=== PATIENT | female | born 1960 ===

== ENCOUNTER 2017-09-01 06:04 | Inpatient (IN) | payer MEDICARE ==
[2017-08-27 18:22] VITALS: BMI 29.2
--- NOTE | 2017-09-01 07:14 | CP.PCM.HP ---
History of Present Illness - History of Present Illness History of Present Illness: PCP: Dr Garcia Orthopedic: Dr Goodson Chief Complaint: Pain to the left Hip HPI: 57 years old female with hx of Rheumatoid Arthritis and both left and right knee replacement, Comes with three months of worsening pain to the left hip after a mechanical fall. She was diagnosed with left hip fracture a month later and ambulates with a cane and walker. She is here for an elective left total hip replacement. PMH: Rheumatoid Arthritis PSH: Bilateral TKR SH: Light smoker; No alcohol nor illegal drug use. FH: States, No known family hx Allergies: NKDA Present on Admission - Present on Admission Any Indicators Present on Admission: No History of DVT/PE: No History of Uncontrolled Diabetes: No Urinary Catheter: No Decubitus Ulcer Present: No Review of Systems - Constitutional Constitutional: absent: Anorexia, Chills, Fatigue, Fever, Weight Gain - EENT Eyes: Requires Corrective Lenses. absent: Diplopia, Floaters, Pain Ears: absent: Decreased Hearing, Ear Discharge, Tinnitus Nose/Mouth/Throat: absent: Epistaxis, Nasal Congestion, Nasal Discharge, Sinus Pain, Sinus Pressure - Cardiovascular Cardiovascular: absent: Chest Pain, Dyspnea, Edema - Respiratory Respiratory: absent: Cough, Dyspnea, Wheezing, Stridor - Gastrointestinal Gastrointestinal: absent: Abdominal Pain, Constipation, Diarrhea, Nausea, Vomiting - Genitourinary Genitourinary: absent: Dysuria, Flank Pain, Hematuria, Urinary Frequency - Musculoskeletal Musculoskeletal: Arthralgias Additional comments: Left hip pain and stiff - Integumentary Integumentary: absent: Pruritus, Rash, Skin Ulcer, Sores, Striae, Swelling - Neurological Neurological: absent: Confusion, Focal Weakness, Headaches, Weakness - Psychiatric Psychiatric: absent: Anxiety, Depression, Panic Attacks - Endocrine Endocrine: absent: Palpitations, Polydipsia, Polyphagia, Polyuria - Hematologic/Lymphatic Hematologic: absent: Easy Bleeding, Easy Bruising Past Patient History - Past Medical History & Family History Past Medical History?: Yes - Past Social History Smoking Status: Current Some Days Smoker Chewing Tobacco Use: No Cigar Use: No Alcohol: None Drugs: Denies Home Situation {Lives}: With Family - CARDIAC Hx Cardiac Disorders: No - PULMONARY Hx Respiratory Disorders: No - NEUROLOGICAL Hx Neurological Disorder: No - HEENT Hx HEENT Problems: No - RENAL Hx Chronic Kidney Disease: No - ENDOCRINE/METABOLIC Hx Endocrine Disorders: No - HEMATOLOGICAL/ONCOLOGICAL Hx Blood Disorders: Yes Hx Anemia: Yes - INTEGUMENTARY Hx Dermatological Problems: No - MUSCULOSKELETAL/RHEUMATOLOGICAL Hx Musculoskeletal Disorders: Yes Hx Rheumatoid Arthritis: Yes - GASTROINTESTINAL Hx Gastrointestinal Disorders: No - GENITOURINARY/GYNECOLOGICAL Hx Genitourinary Disorders: No - PSYCHIATRIC Hx Psychophysiologic Disorder: No - SURGICAL HISTORY Hx Surgeries: Yes Hx Joint Replacement: Yes (right and left knee) - ANESTHESIA Hx Anesthesia: Yes Hx Anesthesia Reactions: No Meds Allergies/Adverse Reactions: Allergies Allergy/AdvReac Type Severity Reaction Status Date / Time No Known Allergies Allergy Verified 09/01/17 07:02 Physical Exam - Constitutional Appears: No Acute Distress - Head Exam Head Exam: ATRAUMATIC, NORMAL INSPECTION, NORMOCEPHALIC - Eye Exam Eye Exam: EOMI, Normal appearance - ENT Exam ENT Exam: Mucous Membranes Moist, Normal Exam, Normal External Ear Exam, Normal Oropharynx - Neck Exam Neck exam: Positive for: Full Rom, Normal Inspection. Negative for: Lymphadenopathy, Tenderness - Respiratory Exam Respiratory Exam: Clear to Auscultation Bilateral. absent: Rales, Rhonchi, Wheezes - Cardiovascular Exam Cardiovascular Exam: REGULAR RHYTHM, RRR, +S1, +S2 - GI/Abdominal Exam GI & Abdominal Exam: Normal Bowel Sounds, Soft. absent: Mass, Organomegaly - Rectal Exam Rectal Exam: Deferred - Extremities Exam Additional comments: Pain to the left hip and left lower extremity on sitting up from a lying position and on palpation of the hip. - Back Exam Back exam: NORMAL INSPECTION. absent: CVA tenderness (L), CVA tenderness (R) - Neurological Exam Neurological exam: Alert, CN II-XII Intact, Oriented x3, Reflexes Normal - Psychiatric Exam Psychiatric exam: Normal Affect, Normal Mood - Skin Skin Exam: Intact, Normal Color, Warm Results - Labs Labs: Laboratory Results - last 24 hr 09/01/17 06:30 Crossmatch See Detail BBK History Checked No verified bt 08/17 Hb ii.3 Ht 33 WBC 8.0 BUN 21 Creatinine 0.7 UA -ve nitrites and -ve leukocyte esterase - EKG Data EKG comments: NSR 68/min - Imaging and Cardiology Chest x-ray Status: Report reviewed by me Additional comment: Subcentimeter densities over mid aspect of the right lung Assessment & Plan - Assessment and Plan (Free Text) Assessment: #. Rheumatoid Arthritis #. Fracture Left Femur head Plan: 57 years old female with hx of Rheumatoid Arthritis and both left and right knee replacement, Comes with three months of worsening pain to the left hip after a mechanical fall. She was diagnosed with left hip fracture a month later and ambulates with a cane and walker. She is here for an elective left total hip replacement. #. Rheumatoid Arthritis - Pain management - restart Home medication post surgery - Embrel/Methotrexate/Sulfasalazine/leflunomide #. Fracture Left Femur head - For left THR - Consult Dr Goodson orthopedic - Pain management post surgery - PT/OT post surgery #. DVT Prophylaxis post surgery #. Code Status: Full The patient was cleared for Surgery by her PCP Dr Garcia. Documented in the records. After review of the medical records, laboratory records and the hydrodynamic records in this patient with no cardiac nor Pulmonary hx, I agree to Clear this patient with mild cardiac risk for surgery Yousuf Sal MD - Date & Time Date: 09/01/17 Time: 07:14
[2017-09-01] MEDS ORDERED: Propofol 10 mg/ml Inj (20 ML) ONE (07:18)
[2017-09-01] MEDS ORDERED: Midazolam 2 MG/2 ML VIAL ONE (07:19)
[2017-09-01] MEDS ORDERED: ePHEDrine 50 mg/ml Inj ONE ×2 (07:19→13:29)
[2017-09-01] MEDS ORDERED: Rocuronium 10 mg/ml (5 ml) ONE ×3 (07:20→12:25)
[2017-09-01] MEDS ORDERED: Succinylcholine 200 mg/10 ml Inj IV ONE (07:20)
[2017-09-01] MEDS ORDERED: Bupivacaine 0.25%-Epinephrine 1:200,000 (30 ml) Inj ONE (07:21)
[2017-09-01] MEDS ORDERED: Morphine 1 mg/ml preservative-free Inj(Duramorph) ONE (07:23)
[2017-09-01] MEDS ORDERED: Etomidate 20 mg/10ml Inj IV ONE (07:31)
[2017-09-01] MEDS ORDERED: Lidocaine 4% (Laryng-O-Jet) Kit MM ONE (07:32)
[2017-09-01] MEDS ORDERED: Absorbable Gelatin Sponge Size 100 ONE (07:42)
[2017-09-01] MEDS ORDERED: Thrombin Topical 5,000 IU Spray Kit ONE (07:42)
[2017-09-01] MEDS ORDERED: Lactated Ringer's 1,000 ML IV ONE ×2 (08:00→13:15)
[2017-09-01] MEDS ORDERED: Sodium Chloride 0.9% 1,000 ML IV ONE ×2 (08:15→11:00)
[2017-09-01] MEDS ORDERED: Calcium Chloride 1000 mg/10 ml Syringe IV ONE (08:26)
[2017-09-01] MEDS ORDERED: HEMOSTATIC MATRIX 10 ML DIS.NEEDLE TOP ONE (13:00)
[2017-09-01] MEDS ORDERED: Propofol 10 mg/ml 1,000 MG/100 ML VIAL ONE (13:10)
[2017-09-01] MEDS ORDERED: Neostigmine Methylsulfate 2 MG/2 ML ML IV ONE (13:26)
[2017-09-01] MEDS ORDERED: Lactated Ringer's 500 ML IV ONE (13:30)
[2017-09-01] MEDS ORDERED: Lactated Ringer's 1,000 ML IV SCH ×2 (14:30→17:15)
--- NOTE | 2017-09-01 14:37 | RAD ---
PROCEDURE: Fluoroscopy greater than 1 hour HISTORY: LEFT HIP COMPARISON: None TECHNIQUE: Standard protocol for this study/examination. FINDINGS: Submitted images from the current procedure: 13.0 IMPRESSION: Fluoroscopy assistance provided as described.
[2017-09-01] MEDS ORDERED: Propofol 10 mg/ml Inj (100 ml) IV SCH ×2 (14:45→20:45)
--- NOTE | 2017-09-01 16:17 | PCM.SURG1 ---
Surgeon's Initial Post Op Note - Surgeon's Notes Surgeon: Hamzah Parcel Wrapper: SANTOS Falk Type of Anesthesia: General Endo, Spinal Anesthesia Administered By: DR Kj Perea Pre-Operative Diagnosis: Primary O/A L HIp Operative Findings: as above. synovitis L hip Post-Operative Diagnosis: same Operation Performed: L THR. Femoral neck osteotomy. arthrotomy synovectomy. release iliopsoas tendon. computer navigation ([employer]) Specimen/Specimens Removed: bone/synovium/cartilage Estimated Blood Loss: EBL {In ML}: 225 Blood Products Given: PRBC Drains Used: No Drains Post-Op Condition: Good Date of Surgery/Procedure: 09/01/17 Time of Surgery/Procedure: 09:40 ([facility] room8:05)
--- NOTE | 2017-09-01 16:23 | PCM.ANESB3 ---
Femoral Nerve Block - Femoral Nerve Block Date of Procedure: 09/01/17 Anesthesiologist: Brit Pre-Procedure Diagnosis: Left Hip Rheumatoid Arthritis Post-Procedure Diagnosis: Same Procedure Performed: Femoral Nerve Block Left - Procedure Femoral Nerve Block: The procedure was explained to the patient that it is for the post-operative pain management. Consent was obtained after a thorough discussion with the patient regarding the benefits and possible complications of local anesthetic block of the femoral nerve at the inguinal crease area. The patient was brought to the operating room and standard monitors were applied. Time-out was held with the circulating nurse to confirm the correct surgery and the appropriate block. Post procedure while intubated and under IV Sedation, patient was placed in supine position with fully extended lower extremities and the __left groin exposed. The femoral artery was then carefully palpated. The ultrasound transducer was then applied to this area in the transverse plane and the femoral nerve was visualized lateral to the femoral artery and underneath the fascia iliaca. After thorough identification, the inguinal crease area was prepped with Chloraprep. At this point, a #22 gauge Stimuplex 4-inch needle was inserted immediately lateral to the femoral artery pulse at the inguinal crease and advanced perpendicularly. The needle was inserted to the ultrasound transducer in-plane towards the femoral nerve in a [id number] direction. Needle advancement was performed carefully under direct ultrasound visualization. Nerve stimulator was used and twitch of the quadriceps muscle was obtained at current of ___0.4__ MA. After negative aspiration, __2___cc of __0.25___% __bupivicaine with 1:200, 000 epinephrine was injected and this was followed with ___28_ __ cc of ___0.25____ % ___bupivicaine with 1:200,000 epinephrine . Under ultrasound guidance the local anesthetics were observed spreading below fascia iliaca and around the femoral nerve. The needle was then directed laterally below the fascia iliaca and after negative aspiration 20 cc of 0.25% bupivicaine with 1:200,000 epinephrine was injected between the fascia iliaca and the iliacus muscle. Local anesthetic was seen spreading below the fascia iliaca in the direction of the lateral femoral cutaneous nerve. The needle was removed intact . The patient had stable vital signs, was responsive and in no apparent distress. The patient tolerated the femoral nerve block well.
--- NOTE | 2017-09-01 16:25 | RAD ---
PROCEDURE: Left Hip X-ray Radiographs. HISTORY: postop COMPARISON: None. FINDINGS: BONES: Satisfactory postoperative status following left ESME. JOINTS: Normal. SOFT TISSUES: Expected findings within the soft tissues lateral to the left hip/ESME identified OTHER FINDINGS: None. IMPRESSION: Satisfactory postoperative status.
[2017-09-01] MEDS: ceFAZolin 1 GM in Sodium Chloride 0.9% 100 ML IVPB SCH (17:56)
[2017-09-01 17:57] LABS: BASO % 0.3 % (0.0-2.0); HEMATOCRIT 42.8 % (34.0-47.0); LYMPH # 0.4 K/uL (1.0-4.3); LYMPH % 2.7 % (20.0-40.0); MEAN CELL VOLUME 86.6 fl (81.0-99.0); MEAN CORPUSCULAR HGB CONC 32.3 g/dL (33.0-37.0); MEAN PLATELET VOLUME 7.5 fl (7.2-11.7); MONO # 0.9 K/uL (0.0-0.8); MONO % 6.6 % (0.0-10.0); NEUT % 90.4 % (50.0-75.0); NRBC % 0.1 % (0.0-0.0); PLATELET COUNT 213 K/uL (130-400); RED CELL DISTRIBUTION WIDTH 17.3 % (11.5-14.5); WHITE BLOOD COUNT 14.4 K/uL (4.8-10.8)
[2017-09-01 18:19] LABS: ALKALINE PHOSPHATASE 112 U/L (38-126); ALT/SGPT 46 U/L (9-52); AST/SGOT 66 U/L (14-36); BILIRUBIN,TOTAL 3.4 mg/dl (0.2-1.3); BLOOD UREA NITROGEN 15 mg/dl (7-17); CALCIUM 9.1 mg/dL (8.4-10.2); CARBON DIOXIDE 17 mmol/L (22-30); CHLORIDE 108 mmol/L (98-107); GFR AFRICAN-AMERICAN > 60; GLUCOSE,RANDOM 211 mg/dL (65-105); POTASSIUM 3.9 MMOL/L (3.6-5.0); SODIUM 143 mmol/l (132-148); TOTAL PROTEIN 6.8 G/DL (6.3-8.2)
--- NOTE | 2017-09-01 18:23 | CP.CCUPN ---
CCU Subjective - Physician Review Events Since Last Encounter (Free Text): 09/01/17 18:23 The patient was Seen and examined by me at the bedside, Medical records reviewed and Management issues were discussed and formulated with the house staff. Events reviewed 57 Y/O active smoker Female with PMHx of severe Rheumatoid Arthritis (on steroids and Embrel/Methotrexate/Sulfasalazine/leflunomide), S/p Bilateral knee replacement Who presented to the ER with complains of three months of worsening pain to the left hip after a mechanical fall. Patient admitted to ICU following L THR, Femoral neck osteotomy. Procedure done under General Anesthesia and was uneventful Estimated Blood Loss: EBL {In ML}: 225 Patient remains sedated, orally intubated and Admitted to ICU hemodynamically stable. Patient on home steroids for RA, received 2 doses of stress steroids and will receive the third dose tonight Patient was difficult intubation and suspected to have airway edema, so she was started on decadrone and decision was made to keep intubated overnight CCU Objective - Vital Signs / Intake & Output Vital Signs (Last 4 hours): Vital Signs Temp Pulse Resp BP Pulse Ox 09/01/17 18:00 105 H 10 L 95/72 L 100 09/01/17 17:07 93 H 11 L 91/64 L 100 09/01/17 16:00 97.7 F 100 H 11 L 101/71 100 09/01/17 15:45 88 10 L 100/68 100 09/01/17 15:30 97.1 F L 87 10 L 113/83 100 09/01/17 15:15 97.0 F L 93 H 10 L 103/57 L 100 09/01/17 15:00 96.9 F L 86 10 L 99/65 L 100 09/01/17 14:45 96.7 F L 88 10 L 105/68 100 09/01/17 14:30 94.3 F L 78 9 L 101/64 100 09/01/17 14:15 94.1 F L 76 9 L 99/66 L 100 Intake and Output (Last 8hrs): Intake & Output 09/01/17 09/01/17 09/01/17 06:59 14:59 22:59 Intake Total 3125 343 Output Total 130 Balance 3125 213 Intake: IV 2150 243 Intake, Piggyback 100 Blood Product 975 Output: Urine 130 Urethral (Rodriguez) 130 Other: Voiding Method Bedpan - Physical Exam Physical Exam Limitations: Positive for: Clinical Condition Head: Positive for: Atraumatic, Normocephalic. Negative for: Tenderness, Contusion, Swelling, Ecchymosis Pupils: Positive for: PERRL. Negative for: Sluggish, Non-Reactive Extroacular Muscles: Positive for: EOMI. Negative for: Gaze Palsy, Entrapment Conjunctiva: Positive for: Normal. Negative for: Injected, Icteric Ears: Positive for: Normal Mouth: Positive for: Moist Mucous Membranes. Negative for: Dry, Drooling Pharnyx: Positive for: Normal Nose (Internal): Positive for: Normal Inspection Neck: Positive for: Normal Range of Motion, Trachea Midline. Negative for: Meningeal Signs, MIDLINE TENDERNESS, Paraspinal Tenderness, JVD, Lymphadenopathy , Bruit, Other Respiratory/Chest: Positive for: Clear to Auscultation, Good Air Exchange. Negative for: Respiratory Distress, Accessory Muscle Use, Wheezes, Decreased Breath Sounds, Rales, Retracting, Rhonchi Cardiovascular: Positive for: Regular Rate and Rhythm, Normal S1, S2, Peripheal Pulses Present. Negative for: Murmurs, Irregular Rhythm, Tachycardic, Bradycardic Abdomen: Positive for: Normal Bowel Sounds. Negative for: Tenderness, Distention, Peritoneal Signs Upper Extremity: Positive for: Normal Inspection, Normal ROM, NORMAL PULSES, Capillary Refill < 2s. Negative for: Cyanosis, Edema Lower Extremity: Positive for: Normal Inspection, NORMAL PULSES, Capillary Refill < 2 s. Negative for: Edema, CALF TENDERNESS - Medications Active Medications: Active Medications Generic Name Dose Route Start Last Admin Trade Name Freq PRN Reason Stop Dose Admin Acetaminophen 650 mg 09/01/17 15:16 Tylenol 650 Mg Supp VT Q6H PRN Fever >100.4 F Lactated Ringer's 1,000 mls @ 75 mls/hr 09/01/17 14:30 Lactated Ringer's IV .[id number] TONJA Cefazolin Sodium 1 gm/ Sodium 100 mls @ 100 mls/hr 09/01/17 17:00 09/01/17 17 :56 Chloride IVPB 09/02/17 09:59 100 mls/hr Q8 TONJA Administration Lactated Ringer's 1,000 mls @ 75 mls/hr 09/01/17 17:15 09/01/17 17:49 Lactated Ringer's IV 75 mls/hr .[id number] TONJA Administration Ondansetron HCl 4 mg 09/01/17 15:16 Zofran Inj IVP Q6H PRN Nausea/Vomiting Pantoprazole Sodium 40 mg 09/02/17 09:00 Protonix Inj IVP DAILY TONJA Pantoprazole Sodium 40 mg 09/02/17 09:00 Protonix Inj IVP DAILY TONJA Prednisone 10 mg 09/02/17 09:00 Prednisone Tab PO DAILY TONJA Propofol 1,000 mg 09/01/17 14:45 09/01/17 13:15 Diprivan IV 1,000 mg .TITRATE TONJA Administration - Patient Studies Lab Studies: Lab Studies 09/01/17 09/01/17 09/01/17 Range/Units 17:28 17:20 07:10 WBC 14.4 H (4.8-10.8) K/uL RBC 4.94 (3.80-5.20) Mil/uL Hgb 13.8 (12.0-16.0) g/dL Hct 42.8 (34.0-47.0) % MCV 86.6 (81.0-99.0) fl MCH 28.0 (27.0-31.0) pg MCHC 32.3 L (33.0-37.0) g/dL RDW 17.3 H (11.5-14.5) % Plt Count 213 (130-400) K/uL MPV 7.5 (7.2-11.7) fl Neut % (Auto) 90.4 H (50.0-75.0) % Lymph % (Auto) 2.7 L (20.0-40.0) % [place] % (Auto) 6.6 (0.0-10.0) % Eos % (Auto) 0.0 (0.0-4.0) % Baso % (Auto) 0.3 (0.0-2.0) % Neut # 13.0 H (1.8-7.0) K/uL Lymph # 0.4 L (1.0-4.3) K/uL [place] # 0.9 H (0.0-0.8) K/uL Eos # 0.0 (0.0-0.7) K/uL Baso # 0.0 (0.0-0.2) K/uL POC Glucose (mg/dL) 227 H (65-110) mg/dL Blood Type Blood Type Confirm O POSITIVE Antibody Screen Crossmatch BBK History Checked 09/01/17 Range/Units 06:30 WBC (4.8-10.8) K/uL RBC (3.80-5.20) Mil/uL Hgb (12.0-16.0) g/dL Hct (34.0-47.0) % MCV (81.0-99.0) fl MCH (27.0-31.0) pg MCHC (33.0-37.0) g/dL RDW (11.5-14.5) % Plt Count (130-400) K/uL MPV (7.2-11.7) fl Neut % (Auto) (50.0-75.0) % Lymph % (Auto) (20.0-40.0) % [place] % (Auto) (0.0-10.0) % Eos % (Auto) (0.0-4.0) % Baso % (Auto) (0.0-2.0) % Neut # (1.8-7.0) K/uL Lymph # (1.0-4.3) K/uL [place] # (0.0-0.8) K/uL Eos # (0.0-0.7) K/uL Baso # (0.0-0.2) K/uL POC Glucose (mg/dL) (65-110) mg/dL Blood Type O POSITIVE Blood Type Confirm Antibody Screen Negative Crossmatch See Detail BBK History Checked No verified bt Laboratory Results - last 24 hr 09/01/17 09/01/17 09/01/17 06:30 07:10 17:20 WBC 14.4 H RBC 4.94 Hgb 13.8 Hct 42.8 MCV 86.6 MCH 28.0 MCHC 32.3 L RDW 17.3 H Plt Count 213 MPV 7.5 Neut % (Auto) 90.4 H Lymph % (Auto) 2.7 L [place] % (Auto) 6.6 Eos % (Auto) 0.0 Baso % (Auto) 0.3 Neut # 13.0 H Lymph # 0.4 L [place] # 0.9 H Eos # 0.0 Baso # 0.0 POC Glucose (mg/dL) Blood Type O POSITIVE Blood Type Confirm O POSITIVE Antibody Screen Negative Crossmatch See Detail BBK History Checked No verified bt 09/01/17 17:28 WBC RBC Hgb Hct MCV MCH MCHC RDW Plt Count MPV Neut % (Auto) Lymph % (Auto) [place] % (Auto) Eos % (Auto) Baso % (Auto) Neut # Lymph # [place] # Eos # Baso # POC Glucose (mg/dL) 227 H Blood Type Blood Type Confirm Antibody Screen Crossmatch BBK History Checked Fingerstick Blood Sugar Results: 227 Review of Systems - Review of Systems Systems not reviewed;Unavailable: Intubated Critical Care Progress Note - Ventilator Checklist Head of Bed 30 Degrees: Yes Daily Sedation Vacation: Yes Daily Assessment of Readiness to Wean: Yes Daily Spontaneous Breathing Trial: Yes PUD Prophalyxis: Yes DVT Prophylaxis: Yes Oral Care with Chlorhexidine Gluconate {CHG}: Yes - Extremities/Vascular Does the Patient have a Central Venous Catheter?: No Does the Patient need a Central Venous Catheter?: No Does the Patient have a Rodriguez Catheter?: Yes Does the Patient need a Rodriguez Catheter?: Yes - Nutrition Nutrition: Nutrition Category Date Time Status NPO Diet [DIET] Diets 09/01/17 Breakfast Active Assessment/Plan (1) Rheumatoid arthritis Current Visit: Yes Status: Acute (2) Acute respiratory failure Current Visit: Yes Status: Acute (3) Aftercare following joint replacement surgery Current Visit: Yes Status: Acute - Assessment and Plan (Free Text) Assessment: Admit to SICU for hemodynamic monitoring, STAT LABS/LYTES/CBC, XR, EKG Full vent support tonight, Wean to extubate in AM Monitor Respiratory status PRN Naloxone for RR<8 IV Hydration with LR @ 100 ml/hr STRESS DOSE IV STEROIDS X 3 Perioperative Antibiotics Pain control with MORPHIN IV IV Q4H PRN NPO Bowel regimen Monitor urine output Rodriguez to be removed tomorrow Restart outpatient meds BD nebs q 6h prn PRN Ondansetron Wound care Tight glycemic control, RISS with Coverage Aggressive pulmonary toilet, chest PT, suctioning GI/DVT PPX with SCDs, START LMWH IN AM IF NO BLEED GI PPX Code status: Full code Total critical care time 45 minutes
[2017-09-01 18:30] LABS: NEUTROPHIL 86 % (42-75); TOTAL CELLS COUNTED 100
[2017-09-01] MEDS ORDERED: Lactated Ringer's 500 ML IV SCH (20:45)
[2017-09-01] MEDS: Dexamethasone 10 MG in Sodium Chloride 0.9% 50 ML IVPB SCH (22:00)
[2017-09-01] MEDS ORDERED: Hydrocortisone- 100 MG in Sodium Chloride 0.9% 100 ML IV ONE (23:00)
[2017-09-02] MEDS: ceFAZolin 1 GM in Sodium Chloride 0.9% 100 ML IVPB SCH ×2 (01:00→08:57)
[2017-09-02 05:19] LABS: HEMATOCRIT 33.4 % (34.0-47.0); MEAN CORPUSCULAR HEMOGLOBIN 28.2 pg (27.0-31.0); MEAN CORPUSCULAR HGB CONC 33.2 g/dL (33.0-37.0); RED CELL DISTRIBUTION WIDTH 17.6 % (11.5-14.5); WHITE BLOOD COUNT 13.3 K/uL (4.8-10.8)
[2017-09-02 05:24] LABS: ABG ALLEN TEST YES; ABG MECHANICAL RATE 12; ARTERIAL BLOOD GAS HCO3 23.3 mmol/L (21-28); ARTERIAL BLOOD GAS MODE A/C; ARTERIAL BLOOD GAS O2 CONTENT 15.8 ML/dL (15-23); ARTERIAL BLOOD GAS PH 7.37 (7.35-7.45); ARTERIAL BLOOD GAS PO2 186 mm/Hg (80-100); ARTERIAL BLOOD HGB O2 SAT 95.3 % (95.0-98.0); ATERIAL BLOOD GAS PEEP 5; CARBOXYHEMOGLOBIN 1.3 % (0.5-1.5); HHB 1.3 % (0.0-5.0); METHEMOGLOBIN 2.1 % (0.0-3.0)
[2017-09-02 05:32] LABS: BLOOD UREA NITROGEN 17 mg/dl (7-17); CALCIUM 8.4 mg/dL (8.4-10.2); CARBON DIOXIDE 21 mmol/L (22-30); CHLORIDE 110 mmol/L (98-107); GFR AFRICAN-AMERICAN > 60; GLUCOSE,RANDOM 156 mg/dL (65-105); POTASSIUM 4.3 MMOL/L (3.6-5.0); SODIUM 142 mmol/l (132-148)
--- NOTE | 2017-09-02 08:26 | CP.PCM.PN ---
Subjective - Date & Time of Evaluation Date of Evaluation: 09/02/17 Time of Evaluation: 08:00 - Subjective Subjective: Patient seen and examined bedside. Intubated on MV PRVC/ Ac mode , awake, alert , comfortable, Communicating by writing. Denies any pain or discomfort and asking when will she be extubated . Hemodynamically stable,afebrile, no acute issues overnight. Objective - Vital Signs/Intake and Output Vital Signs (last 24 hours): Temp Pulse Resp BP Pulse Ox 97.6 F 74 12 92/59 L 99 09/02/17 04:00 09/02/17 06:30 09/02/17 06:30 09/02/17 06:30 09/02/17 06:30 - Medications Medications: Current Medications Acetaminophen (Tylenol 650 Mg Supp) 650 mg MO Q6H PRN PRN Reason: Fever >100.4 F Enoxaparin Sodium (Lovenox) 40 mg SC DAILY [facility] PRN Reason: Protocol Lactated Ringer's (Lactated Ringer's) 1,000 mls @ 75 mls/hr IV .[id number] [facility] Cefazolin Sodium 1 gm/ Sodium (Chloride) 100 mls @ 100 mls/hr IVPB Q8 [facility] Stop: 09/02/17 09:59 Last Admin: 09/02/17 01:00 Dose: 100 mls/hr Lactated Ringer's (Lactated Ringer's) 1,000 mls @ 75 mls/hr IV .[id number] [facility] Last Admin: 09/01/17 17:49 Dose: 75 mls/hr Dexamethasone 10 mg/ Sodium (Chloride) 51 mls @ 102 mls/hr IVPB Q12 [facility] Last Admin: 09/01/17 22:00 Dose: 102 mls/hr Lactated Ringer's (Lactated Ringer's 500ml) 500 mls @ 500 mls/hr IV .Q1H [facility] Last Admin: 09/01/17 20:45 Dose: 500 mls/hr Ondansetron HCl (Zofran Inj) 4 mg IVP Q6H PRN PRN Reason: Nausea/Vomiting Pantoprazole Sodium (Protonix Inj) 40 mg IVP DAILY [facility] Pantoprazole Sodium (Protonix Inj) 40 mg IVP DAILY [facility] Prednisone (Prednisone Tab) 10 mg PO DAILY [facility] Propofol (Diprivan) 1,000 mg IV .TITRATE TONJA PRN Reason: Protocol - Labs Labs: 09/02/17 04:45 09/02/17 04:45 - Constitutional Appears: Non-toxic, No Acute Distress - Head Exam Head Exam: ATRAUMATIC, NORMAL INSPECTION, NORMOCEPHALIC - Eye Exam Eye Exam: EOMI, Normal appearance, PERRL Pupil Exam: NORMAL ACCOMODATION - ENT Exam ENT Exam: Mucous Membranes Moist, Normal Exam - Neck Exam Neck Exam: Full ROM, Normal Inspection - Respiratory Exam Respiratory Exam: Clear to Ausculation Bilateral. absent: Rales, Rhonchi, Wheezes, Respiratory Distress Additional comments: intubated - Cardiovascular Exam Cardiovascular Exam: REGULAR RHYTHM, RRR, +S1, +S2. absent: JVD - GI/Abdominal Exam GI & Abdominal Exam: Soft, Normal Bowel Sounds. absent: Distended, Guarding, Tenderness, Rebound - Rectal Exam Rectal Exam: Deferred - Extremities Exam Extremities Exam: Normal Capillary Refill. absent: Calf Tenderness, Pedal Edema Additional comments: left hip surgica incision with acquacell dressing in place - Neurological Exam Neurological Exam: Alert, Awake, CN II-XII Intact - Psychiatric Exam Psychiatric exam: Normal Affect - Skin Skin Exam: Dry, Intact, Normal Color, Warm Assessment and Plan - Assessment and Plan (Free Text) Assessment: 57 years old female with hx of Rheumatoid Arthritis and both left and right knee replacement came with three months of worsening pain to the left hip after a mechanical fall. She was diagnosed with left hip fracture a month later and ambulates with a cane and walker. She was admitted and underwent total LHR. Patient had a difficult intubation and post op kept intubated and monitored in ICU and given stress dose of steroids for possible vocal cord edema.Today awake , alert comfortable. 1.Suspected airway edema post difficult intubation kept intubated post op and received steroids IV will wean off the vent and plan to extubate today Placed on CPAP 2. s/p Left THR history of Fracture Left Femur head s/p mechanical fall POD# 1 pain is controlled Ortho Dr. de leon following Will start PT , DVT prophylaxis 3.Acute blood loss anemia s/p 2 unit PRBc transfusion Hgb 11 today will monitor 4.Rheumatoid Arthritis continue Pain management will restart home medication if ok with ortho Embrel/Methotrexate/Sulfasalazine/leflunomide on hold for now 5. Leukocytosis most likely steroid induced 6.Hyperglycemia most likely steoid induced Monitor for now 5. DVT Prophylaxis start lovenox SCD
--- NOTE | 2017-09-02 08:42 | CP.PCM.PN ---
Subjective - Date & Time of Evaluation Date of Evaluation: 09/02/17 Time of Evaluation: 07:20 - Subjective Subjective: S- pt a b it agitated, intubated at time of eval Objective - Vital Signs/Intake and Output Vital Signs (last 24 hours): Temp Pulse Resp BP Pulse Ox 98.7 F 84 18 100/64 100 09/02/17 08:00 09/02/17 08:00 09/02/17 08:00 09/02/17 08:00 09/02/17 08:00 - Medications Medications: Current Medications Acetaminophen (Tylenol 650 Mg Supp) 650 mg AL Q6H PRN PRN Reason: Fever >100.4 F Enoxaparin Sodium (Lovenox) 40 mg SC DAILY TONJA PRN Reason: Protocol Lactated Ringer's (Lactated Ringer's) 1,000 mls @ 75 mls/hr IV .[id number] [facility] Cefazolin Sodium 1 gm/ Sodium (Chloride) 100 mls @ 100 mls/hr IVPB Q8 [facility] Stop: 09/02/17 09:59 Last Admin: 09/02/17 01:00 Dose: 100 mls/hr Lactated Ringer's (Lactated Ringer's) 1,000 mls @ 75 mls/hr IV .[id number] [facility] Last Admin: 09/01/17 17:49 Dose: 75 mls/hr Dexamethasone 10 mg/ Sodium (Chloride) 51 mls @ 102 mls/hr IVPB Q12 [facility] Last Admin: 09/01/17 22:00 Dose: 102 mls/hr Lactated Ringer's (Lactated Ringer's 500ml) 500 mls @ 500 mls/hr IV .Q1H [facility] Last Admin: 09/01/17 20:45 Dose: 500 mls/hr Ondansetron HCl (Zofran Inj) 4 mg IVP Q6H PRN PRN Reason: Nausea/Vomiting Pantoprazole Sodium (Protonix Inj) 40 mg IVP DAILY [facility] Pantoprazole Sodium (Protonix Inj) 40 mg IVP DAILY [facility] Prednisone (Prednisone Tab) 10 mg PO DAILY [facility] Propofol (Diprivan) 1,000 mg IV .TITRATE TONJA PRN Reason: Protocol - Labs Labs: 09/02/17 04:45 09/02/17 04:45 - Additional Findings Additional findings: Muscuolskekltal stance/gait- defrred pt somewhat anxious at time of encounter N/V intact leglengths equal dressing dry and intact orthopedically stable Assessment and Plan - Assessment and Plan (Free Text) Assessment: A-s/p THR L P as per anaesthesia9 withdraw ET tube) physio eval
[2017-09-02] MEDS: Enoxaparin 40 mg Syringe SC SCH (08:49)
[2017-09-02] MEDS: Dexamethasone 10 MG in Sodium Chloride 0.9% 50 ML IVPB SCH (08:50)
--- NOTE | 2017-09-02 09:00 | RAD ---
PROCEDURE: CHEST RADIOGRAPH, 1 VIEW HISTORY: intubated COMPARISON: None available. FINDINGS: LUNGS: Clear. PLEURA: No pneumothorax or pleural fluid seen. CARDIOVASCULAR: No radiographic findings to suggest acute or significant cardiovascular disease. OSSEOUS STRUCTURES: No significant abnormalities. VISUALIZED UPPER ABDOMEN: Normal. OTHER FINDINGS: Endotracheal tube within 1 cm of the marii. IMPRESSION: Low lying endotracheal tube within 1 cm of the marii. No active pulmonary disease.
--- NOTE | 2017-09-02 11:25 | CP.PCM.CON ---
History of Present Illness - History of Present Illness History of Present Illness: THE PATIENT IS A 57 YEAR OLD FEMALE WHO WAS ADMITTED VIA SAME DAY SURGERY YESTERDAY AND HAD A LEFT THR AFTER A MECHANICAL FALL WITH A FRACTURE. SHE HAS RHEUMATOID ARTHRITIS AND HAD PRIOR RIGHT AND LEFT KNEE REPLACEMENTS. DR CATES ASKED ME TO FOLLOW THE PATIENT FROM THE [facility]. SHE DENIES ANY HISTORY OF CHEST PAIN, CAD, HYPERTENSION OR HYPERLIPIDEMIA. Past Patient History - Past Medical History & Family History Past Medical History?: Yes - Past Social History Smoking Status: Current Some Days Smoker Chewing Tobacco Use: No Cigar Use: No Alcohol: None Drugs: Denies Home Situation {Lives}: With Family - CARDIAC Hx Cardiac Disorders: No - PULMONARY Hx Respiratory Disorders: No - NEUROLOGICAL Hx Neurological Disorder: No - HEENT Hx HEENT Problems: No - RENAL Hx Chronic Kidney Disease: No - ENDOCRINE/METABOLIC Hx Endocrine Disorders: No - HEMATOLOGICAL/ONCOLOGICAL Hx Blood Disorders: Yes Hx Anemia: Yes - INTEGUMENTARY Hx Dermatological Problems: No - MUSCULOSKELETAL/RHEUMATOLOGICAL Hx Musculoskeletal Disorders: Yes Hx Rheumatoid Arthritis: Yes - GASTROINTESTINAL Hx Gastrointestinal Disorders: No - GENITOURINARY/GYNECOLOGICAL Hx Genitourinary Disorders: No - PSYCHIATRIC Hx Psychophysiologic Disorder: No - SURGICAL HISTORY Hx Surgeries: Yes Hx Joint Replacement: Yes (right and left knee) - ANESTHESIA Hx Anesthesia: Yes Hx Anesthesia Reactions: No Meds Allergies/Adverse Reactions: Allergies Allergy/AdvReac Type Severity Reaction Status Date / Time No Known Allergies Allergy Verified 09/01/17 07:02 - Medications Medications: Current Medications Acetaminophen (Tylenol 650 Mg Supp) 650 mg ID Q6H PRN PRN Reason: Fever >100.4 F Enoxaparin Sodium (Lovenox) 40 mg SC DAILY TONJA PRN Reason: Protocol Last Admin: 09/02/17 08:49 Dose: 40 mg Lactated Ringer's (Lactated Ringer's) 1,000 mls @ 75 mls/hr IV .[id number] TONJA Lactated Ringer's (Lactated Ringer's) 1,000 mls @ 75 mls/hr IV .[id number] [facility] Last Admin: 09/01/17 17:49 Dose: 75 mls/hr Dexamethasone 10 mg/ Sodium (Chloride) 51 mls @ 102 mls/hr IVPB Q12 [facility] Last Admin: 09/02/17 08:50 Dose: 102 mls/hr Lactated Ringer's (Lactated Ringer's 500ml) 500 mls @ 500 mls/hr IV .Q1H [facility] Last Admin: 09/01/17 20:45 Dose: 500 mls/hr Ondansetron HCl (Zofran Inj) 4 mg IVP Q6H PRN PRN Reason: Nausea/Vomiting Pantoprazole Sodium (Protonix Inj) 40 mg IVP DAILY [facility] Last Admin: 09/02/17 08:50 Dose: 40 mg Pantoprazole Sodium (Protonix Inj) 40 mg IVP DAILY [facility] Prednisone (Prednisone Tab) 10 mg PO DAILY [facility] Last Admin: 09/02/17 08:59 Dose: Not Given Propofol (Diprivan) 1,000 mg IV .TITRATE [facility] PRN Reason: Protocol Physical Exam - Respiratory Exam Respiratory Exam: Clear to Auscultation Bilateral - Cardiovascular Exam Cardiovascular Exam: REGULAR RHYTHM, +S1, +S2 - Additional Findings Additional findings: PAT EKG WITH NSR Results - Vital Signs Recent Vital Signs: Last Vital Signs Temp 98.7 F 09/02/17 08:00 Pulse 124 H 09/02/17 10:00 Resp 23 09/02/17 10:00 BP 100/63 09/02/17 10:00 Pulse Ox 100 09/02/17 10:00 - Labs Result Diagrams: 09/02/17 04:45 09/02/17 04:45 Labs: Laboratory Results - last 24 hr 09/01/17 09/01/17 09/01/17 06:30 17:20 17:28 WBC 14.4 H RBC 4.94 Hgb 13.8 Hct 42.8 MCV 86.6 MCH 28.0 MCHC 32.3 L RDW 17.3 H Plt Count 213 MPV 7.5 Neut % (Auto) 90.4 H Lymph % (Auto) 2.7 L Loving % (Auto) 6.6 Eos % (Auto) 0.0 Baso % (Auto) 0.3 Neut # 13.0 H Lymph # 0.4 L Loving # 0.9 H Eos # 0.0 Baso # 0.0 Neutrophils % (Manual) 86 H Band Neutrophils % 3 H Lymphocytes % (Manual) 4 L Monocytes % (Manual) 7 Toxic Granulation Present Platelet Estimate Normal Hypochromasia (manual) Slight pCO2 pO2 HCO3 ABG pH ABG Total CO2 ABG O2 Saturation ABG O2 Content ABG Base Excess ABG Hemoglobin ABG Carboxyhemoglobin POC ABG HHb (Measured) ABG Methemoglobin ABG O2 Capacity Alexandro Test A-a O2 Difference Hgb O2 Saturation Vent Mode Mechanical Rate FiO2 Tidal Volume PEEP Sodium Potassium Chloride Carbon Dioxide Anion Gap BUN Creatinine Est GFR ( Amer) Est GFR (Non-Af Amer) POC Glucose (mg/dL) 227 H Random Glucose Calcium Total Bilirubin AST ALT Alkaline Phosphatase Total Protein Albumin Globulin Albumin/Globulin Ratio Blood Type O POSITIVE Antibody Screen Negative Crossmatch See Detail BBK History Checked No verified bt 09/01/17 09/01/17 09/02/17 17:47 21:22 04:02 WBC RBC Hgb Hct MCV MCH MCHC RDW Plt Count MPV Neut % (Auto) Lymph % (Auto) Loving % (Auto) Eos % (Auto) Baso % (Auto) Neut # Lymph # Loving # Eos # Baso # Neutrophils % (Manual) Band Neutrophils % Lymphocytes % (Manual) Monocytes % (Manual) Toxic Granulation Platelet Estimate Hypochromasia (manual) pCO2 40 pO2 186 H HCO3 23.3 ABG pH 7.37 ABG Total CO2 24.3 ABG O2 Saturation 98.7 H ABG O2 Content 15.8 ABG Base Excess -2.0 ABG Hemoglobin 11.5 L ABG Carboxyhemoglobin 1.3 POC ABG HHb (Measured) 1.3 ABG Methemoglobin 2.1 ABG O2 Capacity 16.0 Alexandro Test Yes A-a O2 Difference 49.0 Hgb O2 Saturation 95.3 Vent Mode A/c Mechanical Rate 12 FiO2 40.0 Tidal Volume 400 PEEP 5 Sodium 143 Potassium 3.9 Chloride 108 H Carbon Dioxide 17 L Anion Gap 22 H BUN 15 Creatinine 0.5 L Est GFR ( Amer) > 60 Est GFR (Non-Af Amer) > 60 POC Glucose (mg/dL) 172 H Random Glucose 211 H Calcium 9.1 Total Bilirubin 3.4 H AST 66 H ALT 46 Alkaline Phosphatase 112 Total Protein 6.8 Albumin 3.3 L Globulin 3.4 Albumin/Globulin Ratio 1.0 Blood Type Antibody Screen Crossmatch BBK History Checked 09/02/17 09/02/17 09/02/17 04:38 04:45 04:45 WBC 13.3 H RBC 3.93 Hgb 11.1 L D Hct 33.4 L MCV 85.0 MCH 28.2 MCHC 33.2 RDW 17.6 H Plt Count 204 MPV Neut % (Auto) Lymph % (Auto) Loving % (Auto) Eos % (Auto) Baso % (Auto) Neut # Lymph # Loving # Eos # Baso # Neutrophils % (Manual) Band Neutrophils % Lymphocytes % (Manual) Monocytes % (Manual) Toxic Granulation Platelet Estimate Hypochromasia (manual) pCO2 pO2 HCO3 ABG pH ABG Total CO2 ABG O2 Saturation ABG O2 Content ABG Base Excess ABG Hemoglobin ABG Carboxyhemoglobin POC ABG HHb (Measured) ABG Methemoglobin ABG O2 Capacity Alexandro Test A-a O2 Difference Hgb O2 Saturation Vent Mode Mechanical Rate FiO2 Tidal Volume PEEP Sodium 142 Potassium 4.3 Chloride 110 H Carbon Dioxide 21 L Anion Gap 15 BUN 17 Creatinine 0.5 L Est GFR ( Amer) > 60 Est GFR (Non-Af Amer) > 60 POC Glucose (mg/dL) 155 H Random Glucose 156 H Calcium 8.4 Total Bilirubin AST ALT Alkaline Phosphatase Total Protein Albumin Globulin Albumin/Globulin Ratio Blood Type Antibody Screen Crossmatch BBK History Checked Assessment & Plan - Assessment and Plan (Free Text) Assessment: S/P LEFT THR 09/01/17 RHEUMATOID ARTHRITIS WITH PRIOR BILATERAL KNEE REPLACEMENTS Plan: CONDTINUE LOVENOX THE PATIENT RECEIVED ANTIBIOTICS FOR EXTUBATION
--- NOTE | 2017-09-02 12:21 | PCM.PROC ---
Procedures Attestation:: I certify that I have explained the specified Operation(s) or Procedure(s), risks, benefits and reasonable alternatives to the Patient and/or other person responsible. The opportunity was given to ask questions and all questions answered - Extubation Clinical Parameters: Resolution/Stabilization of disease process, Hemodynamically Stable, Intact Cough/Gag Reflex, Spontaneous Respirations, Acceptable Vent Settings (FIO2<50%, PEEP<8, PaO2>75, pH>7.25) Weaning Criteria Met: Yes General Weaning Approaches: Pressure Support Ventilation (PSV) Weaning, Spontaneous breathing trials and use of T-Piece Patient Condition: Patient has been successfully extubated and assessed Oxygen Therapy: O2 via Venti Mask Patient Tolerated Procedure: Well, No Complications
[2017-09-02] MEDS ORDERED: Oxycodone/Acetaminophen 5/325 mg Tab PO PRN (14:01)
--- NOTE | 2017-09-02 14:14 | OP ---
PROCEDURE DATE: 09/02/2017 PREOPERATIVE DIAGNOSIS: Primary osteoarthritis of the left hip. POSTOPERATIVE DIAGNOSIS: Primary osteoarthritis of the left hip. PROCEDURE: 1. Left total hip replacement, anterior approach. 2. Open reduction of femoral neck fracture. 3. Autograft, allograft, bone graft to the femur and acetabulum. 4. Release of iliopsoas tendon. 5. Computer navigation. SURGEON: Tyler Goodson MD PROPERTY DEVELOPER: Zari Ortiz, certified registered nursing marketing administrative assistant. SECOND ROTARY SHEAR OPERATOR: . TYPE OF ANESTHESIA: Spinal and general anesthesia. ANESTHESIA ADMINISTERED BY: Kj Perea M.D. COMPLICATIONS: No complications. DRAINS: No drains. OPERATIVE INDICATION: Justine Alaniz is a 57-year-old woman, well known to my practice, who presents with failed right knee replacement and arthroplasty, severe osteoarthritis of the left hip and osteoarthritis of the left knee. Her primary problem today is left hip arthritis. Pros, cons, risks and benefits of replacement arthroplasty were discussed. The patient had come to the office seeking replacement arthroplasty of the left hip. The possibility of mechanical failure, infection, instability, dislocation, secondary or tertiary surgery were discussed. The patient understands the discomfort and wished the surgery to be accomplished. The informed consent was obtained in the presence of the patient and her sister. DESCRIPTION OF PROCEDURE: After having obtained the informed consent in the above fashion, after having identified the site and side of the procedure and a critical pause/time-out, after the satisfactory induction of the anesthetic, the patient was identified as Justine Alaniz in the supine position with all bony prominence well padded. The left lower extremity was placed in the [facility] traction positioner. All bony prominences were well padded. The left extremity was placed across the body. After having obtained the informed consent again, after having identified the site and side of the procedure, after having positioned the patient on the traction table, the left lower extremity and the right iliac crest were prepped and free-draped in the usual fashion for lower extremity surgery. Under the surgeon's direction, a fluoroscope was positioned, video images were generated and therapeutic decisions were made therefrom. This having been accomplished, after sterilely prepping and draping, an incision was described 2 fingerbreadths distal to the ASIS, 3 fingerbreadths posteriorly superficial to the tensor fasciae femoris muscle. The skin incision was carried down to the skin and subcutaneous tissue. The fascia was identified and the tensor muscle was brought down from the fascia. A Medacta retractor was placed. The fascia posterior to the rectus femoris was divided and the Medacta retractor was placed. The lateral femoral circumflex and anterior branch of the lateral femoral circumflex vessels were controlled. The reflected head of rectus femoris was released and this having been accomplished, the fascia was divided. Capsulectomy was accomplished at the point of the intertrochanteric line and it was elevated. At this point in time, with internal rotation, the navigation disk was placed on the lateral aspect of the trochanter and it was registered. Computer navigation was done and accomplished. The osteotomy was accomplished at a point approximately 10 mm above the lesser trochanter. The osteotomy was felt to be too high and a repeat osteotomy was accomplished closer to the intertrochanteric line to avoid lengthening the extremity. This having been accomplished, the head was removed. The acetabulum was exposed. Reaming was carried out to a 48 mm cuff. Autograft, allograft, bone graft accomplished by denuding the reaming of articular cartilage. This having been accomplished, autograft and bone graft into the acetabulum was accomplished and the cuff was impacted in approximately 45 degrees of abduction and 15 degrees of anteversion. Position was found to be acceptable and the verification of cuff position was accomplished with computer navigation. This having been accomplished, the registration had been accomplished again with the ASIS bilaterally and this having been accomplished, the cuff having been impacted, verification of position was offered on image intensification views. This having been accomplished, the femur was exposed. The pubofemoral, ischiofemoral and iliofemoral releases having been accomplished, the proximal femur was exposed and this having been accomplished, the canal was found with sequential broachings to #3 femoral component. At this point in time, there was an episiotomy of the femoral neck above the lesser trochanter. Open reduction and internal fixation of this femoral neck fracture was accomplished using a cerclage wire and bone graft. Trialling was accomplished with a -3.5 neck and a 48 mm outer bearing . This having been accomplished, the push-pull was found to be negative and there was no evidence of instability and at this point in time, the appropriate size stem was introduced with a -3.5 head and a 48 mm outer bearing. The hip was reduced and found to be stable in all planes. Autograft, allograft, the femoral to the proximal femur was accomplished. Iliopsoas had been released using the electrocautery. Hemostasis was controlled. The wound was thoroughly irrigated. The hip was found to be stable. Verification of position was offered on image intensification views. Closure of the fascia was with 0-Quill followed by 0-Quill, Vicryl and jiaro to skin. It should be noted that the registration pins had been placed in the right ASIS and this was removed and closed with interrupted Vicryl and nylon. This having been accomplished, compression dressing was applied. Tyler Goodson MD
[2017-09-02] MEDS: Insulin Regular 100 units/ml SC SCH ×2 (16:16→22:45)
--- NOTE | 2017-09-02 18:37 | PN ---
DATE: 09/02/2017 CRITICAL CARE PROGRESS NOTE LOCATION: The patient in ICU, bed 421. TIME SPENT: 45 minutes. SUBJECTIVE: The patient is seen and evaluated at the bedside. Events since admission reviewed. Past medical, surgical, and social history noted. Overnight, status post total hip replacement, left. Reportedly, had prolonged difficult intubation secondary to rheumatoid arthritis involvement. Estimated blood loss was more than 200 mL. Received 2 units of packed red blood cells. Kept intubated over the night for suspected vocal cord edema status post prophylactic antibiotic x3 and stress dose steroid. Remained normotensive, afebrile, comfortable on the ventilator. This morning, alert and awake, follows commands appropriate. The patient was put on pressure support of 10, FiO2 35%, tolerated well, extubated after deflating the cuff, looking for vocalization and then extubated, placed on Ventimask 50%, saturating well over 94%. PAST MEDICAL HISTORY: Significant for rheumatoid arthritis and bilateral total knee replacement, ex-smoker. ALLERGIES: None. PHYSICAL EXAMINATION: GENERAL: Middle-aged female, looks older than her stated age. VITAL SIGNS: Temperature 98.7, heart rate 81 and regular, blood pressure 100/64, mean arterial pressure 76, respiratory rate 18, saturating 100%. Intake 3468, output 130, positive balance 3338. HEAD, EYES, EARS, NOSE, AND THROAT: Pupils are reactive. Conjunctivae are pink. Sclerae are anicteric. NECK: Supple. Trachea central. Endotracheal tube in place without secretions, now removed. LUNGS: Bilateral breath sounds, clear to auscultation. HEART: Rhythm regular. S1 and S2 normal in intensity. No S3, S4, or gallop. No audible murmur. ABDOMEN: Bowel sounds present, soft. Liver and spleen not palpable. GENITOURINARY: Bladder not distended. Rodriguez discontinued. EXTREMITIES: Scar from the previous knee surgery. Dressing intact on the left hip. Peripheral pulses are intact, equal in intensity. NEUROLOGIC: Cranial nerves are intact. SKIN: Without rash. CURRENT MEDICATIONS: Tylenol 650 q.6 p.r.n., dexamethasone 10 mg IV q.12 , Lovenox 40 subcu daily, Ringer's lactate at 75 mL per hour, Zofran 4 mg IV q.6 hours p.r.n., Protonix 40 IV daily, and prednisone 10 mg p.o. daily, on hold secondary to IV steroid of Diprivan drip. LABORATORY DATA: WBC 13.3, hemoglobin 11.1, hematocrit 33.4, platelet count 204. ABG; pH 7.37, pCO2 of 40, pO2 of 186, oxygen saturation 98.7%, on FiO2 40%, PEEP 5, tidal volume 400, AC 12. SMA-7; sodium 142, potassium 4.3, chloride 110, CO2 21, blood urea nitrogen 15, creatinine 0.5, glucose 130. Microbiology, none reported. Chest x-ray, endotracheal tube in place, no pulmonary congestion, dilated loops of large bowel noted, consistent with adynamic ileus. IMPRESSION AND PLAN: 1. Postop day #1, status post total left hip replacement. Operative course noted. Remains hemodynamically stable, extubated. 2. Cardiac: No arrhythmias noted. 3. Pulmonary: Status post extubation. Currently on Ventimask 50%, saturating 100%. Change to 2 L nasal cannula as tolerated. 4. Hematology: Anemia of chronic disease, superimposed on acute blood loss, status post transfusion 2 units packed red blood cells. Closely monitor hemoglobin. Started on Lovenox for DVT prophylaxis. 5. Gastrointestinal: Encourage feeding as tolerated. Closely monitor for bowel movement. No clear evidence of any bowel obstruction, though adynamic ileus noted in abdominal x-ray. 6. Renal: No acute issues. Continue IV fluid. To resume medications for rheumatoid arthritis once the patient cleared by ortho and more clinically stable. Wean off the systemic steroid to patient's baseline supplement at 10 mg daily. The patient has been on Enbrel, leflunomide, methotrexate, and sulfasalazine. Carlos Vera MD
[2017-09-02] MEDS: Oxycodone/Acetaminophen 5/325 mg Tab PO PRN (21:34)
[2017-09-03 05:20] LABS: BLOOD UREA NITROGEN 11 mg/dl (7-17); CALCIUM 8.4 mg/dL (8.4-10.2); CARBON DIOXIDE 24 mmol/L (22-30); CHLORIDE 109 mmol/L (98-107); GFR AFRICAN-AMERICAN > 60; GLUCOSE,RANDOM 104 mg/dL (65-105); HEMATOCRIT 27.7 % (34.0-47.0); MEAN CELL VOLUME 84.2 fl (81.0-99.0); MEAN CORPUSCULAR HEMOGLOBIN 27.4 pg (27.0-31.0); MEAN CORPUSCULAR HGB CONC 32.6 g/dL (33.0-37.0); RED CELL DISTRIBUTION WIDTH 17.7 % (11.5-14.5); SODIUM 142 mmol/l (132-148); WHITE BLOOD COUNT 11.5 K/uL (4.8-10.8)
[2017-09-03] MEDS: Oxycodone/Acetaminophen 5/325 mg Tab PO PRN ×2 (06:58→14:58)
[2017-09-03] MEDS: Insulin Regular 100 units/ml SC SCH ×4 (07:04→22:00)
[2017-09-03] MEDS: Enoxaparin 40 mg Syringe SC SCH (08:41)
--- NOTE | 2017-09-03 08:43 | CP.PCM.PN ---
Subjective - Date & Time of Evaluation Date of Evaluation: 09/03/17 Time of Evaluation: 08:30 - Subjective Subjective: Patient seen and examined. Bedside. Feeling well. s/p successful extubation yesterday . Hemodynamically stable, afebrile, saturating 100 % in RA. Pain is controlled No acute issues overnight Objective - Vital Signs/Intake and Output Vital Signs (last 24 hours): Temp Pulse Resp BP Pulse Ox 98.7 F 79 16 95/59 L 99 09/03/17 08:00 09/03/17 08:00 09/03/17 08:00 09/03/17 08:00 09/03/17 08:00 - Medications Medications: Current Medications Acetaminophen (Tylenol 650 Mg Supp) 650 mg RI Q6H PRN PRN Reason: Fever >100.4 F Enoxaparin Sodium (Lovenox) 40 mg SC DAILY [facility] PRN Reason: Protocol Last Admin: 09/02/17 08:49 Dose: 40 mg Lactated Ringer's (Lactated Ringer's) 1,000 mls @ 75 mls/hr IV .[id number] [facility] Lactated Ringer's (Lactated Ringer's) 1,000 mls @ 75 mls/hr IV .[id number] [facility] Last Admin: 09/01/17 17:49 Dose: 75 mls/hr Lactated Ringer's (Lactated Ringer's 500ml) 500 mls @ 500 mls/hr IV .Q1H [facility] Last Admin: 09/01/17 20:45 Dose: 500 mls/hr Insulin Human Regular (Humulin R) 1 units SC ACCU-CHECK [facility] PRN Reason: Protocol Last Admin: 09/03/17 07:04 Dose: Not Given Ondansetron HCl (Zofran Inj) 4 mg IVP Q6H PRN PRN Reason: Nausea/Vomiting Oxycodone/Acetaminophen (Percocet 5/325 Mg Tab) 1 tab PO Q6 PRN PRN Reason: Pain, moderate (4-7) Stop: 09/05/17 14:02 Last Admin: 09/02/17 16:34 Dose: 1 tab Oxycodone/Acetaminophen (Percocet 5/325 Mg Tab) 2 tab PO Q6 PRN PRN Reason: Pain, severe (8-10) Stop: 09/05/17 21:10 Last Admin: 09/03/17 06:58 Dose: 2 tab Pantoprazole Sodium (Protonix Inj) 40 mg IVP DAILY [facility] Last Admin: 09/02/17 08:50 Dose: 40 mg Prednisone (Prednisone Tab) 10 mg PO DAILY [facility] Last Admin: 09/02/17 08:59 Dose: Not Given - Labs Labs: 09/03/17 04:30 09/03/17 04:30 - Constitutional Appears: Well, Non-toxic, No Acute Distress - Head Exam Head Exam: ATRAUMATIC, NORMAL INSPECTION, NORMOCEPHALIC - Eye Exam Eye Exam: EOMI, Normal appearance, PERRL Pupil Exam: NORMAL ACCOMODATION - ENT Exam ENT Exam: Mucous Membranes Moist, Normal Exam - Neck Exam Neck Exam: Full ROM, Normal Inspection - Respiratory Exam Respiratory Exam: Clear to Ausculation Bilateral, NORMAL BREATHING PATTERN. absent: Rales, Rhonchi, Wheezes - Cardiovascular Exam Cardiovascular Exam: REGULAR RHYTHM, RRR, +S1, +S2. absent: JVD - GI/Abdominal Exam GI & Abdominal Exam: Soft, Normal Bowel Sounds. absent: Distended, Guarding, Tenderness, Rebound - Rectal Exam Rectal Exam: Deferred - Extremities Exam Extremities Exam: Normal Inspection. absent: Calf Tenderness, Pedal Edema Additional comments: bilateral knee surgical scar Left hip surgical incision with acquacell dressing in place - Back Exam Back Exam: NORMAL INSPECTION - Neurological Exam Neurological Exam: Alert, Awake, CN II-XII Intact, Oriented x3 - Psychiatric Exam Psychiatric exam: Normal Affect, Normal Mood - Skin Skin Exam: Dry, Normal Color, Warm Assessment and Plan - Assessment and Plan (Free Text) Assessment: 57 years old female with hx of Rheumatoid Arthritis and both left and right knee replacement came with three months of worsening pain to the left hip after a mechanical fall. She was diagnosed with left hip fracture a month later and ambulates with a cane and walker. She was admitted and underwent total LHR. Patient had a difficult intubation and post op was kept intubated , monitored in ICU and given stress dose of steroids for possible vocal cord edema.s/p successfyull extubation yesterday . At present hemodynamically stable, will transfer to med /surg. 1.Suspected airway edema post difficult intubation kept intubated post op and received steroids IV s/p successful extubation and saturating 100 % in RA 2. s/p Left THR history of Fracture Left Femur head s/p mechanical fall POD# 2 pain is controlled Ortho Dr. Zaldivar following Will start PT Continue lovenox for DVT prophylaxis incentive spirometry 3.Acute blood loss anemia s/p 3 unit PRBc transfusion Hgb 11 today will monitor 4.Rheumatoid Arthritis continue Pain management will restart home medication if ok with ortho Embrel/Methotrexate/Sulfasalazine/leflunomide on hold for now Continue Prednisone Po 5. Leukocytosis most likely steroid induced 6.Hyperglycemia most likely steroid induced Monitor for now 5. DVT Prophylaxis on lovenox SCD
[2017-09-03] MEDS: Pantoprazole 40 mg EC Tab PO SCH (09:38)
--- NOTE | 2017-09-03 11:45 | CP.PCM.PN ---
Subjective - Date & Time of Evaluation Date of Evaluation: 09/03/17 Time of Evaluation: 09:15 - Subjective Subjective: NO COMPLAINTS OF CHEST PAIN OR SOB Objective - Vital Signs/Intake and Output Vital Signs (last 24 hours): Temp Pulse Resp BP Pulse Ox 98.7 F 102 H 16 109/79 100 09/03/17 08:00 09/03/17 09:00 09/03/17 09:00 09/03/17 09:00 09/03/17 09:00 - Medications Medications: Current Medications Acetaminophen (Tylenol 650 Mg Supp) 650 mg [place] Q6H PRN PRN Reason: Fever >100.4 F Enoxaparin Sodium (Lovenox) 40 mg SC DAILY [facility] PRN Reason: Protocol Last Admin: 09/03/17 08:41 Dose: 40 mg Lactated Ringer's (Lactated Ringer's) 1,000 mls @ 75 mls/hr IV .[id number] [facility] Lactated Ringer's (Lactated Ringer's) 1,000 mls @ 75 mls/hr IV .[id number] [facility] Last Admin: 09/01/17 17:49 Dose: 75 mls/hr Lactated Ringer's (Lactated Ringer's 500ml) 500 mls @ 500 mls/hr IV .Q1H [facility] Last Admin: 09/01/17 20:45 Dose: 500 mls/hr Insulin Human Regular (Humulin R) 1 units SC ACCU-CHECK [facility] PRN Reason: Protocol Last Admin: 09/03/17 07:04 Dose: Not Given Ondansetron HCl (Zofran Inj) 4 mg IVP Q6H PRN PRN Reason: Nausea/Vomiting Oxycodone/Acetaminophen (Percocet 5/325 Mg Tab) 1 tab PO Q6 PRN PRN Reason: Pain, moderate (4-7) Stop: 09/05/17 14:02 Last Admin: 09/02/17 16:34 Dose: 1 tab Oxycodone/Acetaminophen (Percocet 5/325 Mg Tab) 2 tab PO Q6 PRN PRN Reason: Pain, severe (8-10) Stop: 09/05/17 21:10 Last Admin: 09/03/17 06:58 Dose: 2 tab Pantoprazole Sodium (Protonix Ec Tab) 40 mg PO DAILY [facility] Last Admin: 09/03/17 09:38 Dose: Not Given Prednisone (Prednisone Tab) 10 mg PO DAILY [facility] Last Admin: 09/03/17 08:41 Dose: 10 mg - Labs Labs: 09/03/17 04:30 09/03/17 04:30 - Respiratory Exam Respiratory Exam: Clear to Ausculation Bilateral - Cardiovascular Exam Cardiovascular Exam: REGULAR RHYTHM, +S1, +S2 - Additional Findings Additional findings: HELP DESK ANALYST NSR Assessment and Plan - Assessment and Plan (Free Text) Assessment: RA S/P LEFT HIP REPLACEMENT Plan: CONTINUE LOVENOX AND PAIN MEDICATIONS FOR REHAB
[2017-09-04 05:30] LABS: ALB/GLOB RATIO 0.9 (1.0-2.1); ALKALINE PHOSPHATASE 130 U/L (38-126); ALT/SGPT 68 U/L (9-52); AST/SGOT 87 U/L (14-36); BILIRUBIN,TOTAL 0.9 mg/dl (0.2-1.3); BLOOD UREA NITROGEN 12 mg/dl (7-17); CALCIUM 7.9 mg/dL (8.4-10.2); CARBON DIOXIDE 26 mmol/L (22-30); CHLORIDE 105 mmol/L (98-107); GFR AFRICAN-AMERICAN > 60; GLUCOSE,RANDOM 124 mg/dL (65-105); HEMATOCRIT 25.6 % (34.0-47.0); MEAN CELL VOLUME 85.1 fl (81.0-99.0); MEAN CORPUSCULAR HEMOGLOBIN 28.2 pg (27.0-31.0); MEAN CORPUSCULAR HGB CONC 33.1 g/dL (33.0-37.0); POTASSIUM 3.8 MMOL/L (3.6-5.0); RED CELL DISTRIBUTION WIDTH 17.9 % (11.5-14.5); SODIUM 138 mmol/l (132-148); TOTAL PROTEIN 5.8 G/DL (6.3-8.2)
[2017-09-04] MEDS: Insulin Regular 100 units/ml SC SCH ×3 (06:33→17:32)
[2017-09-04] MEDS ORDERED: Iron Sucrose 100 mg/5 ml Inj IVP ONE (07:42)
[2017-09-04] MEDS: Oxycodone/Acetaminophen 5/325 mg Tab PO PRN ×2 (08:52→17:31)
[2017-09-04] MEDS: Pantoprazole 40 mg EC Tab PO SCH (08:54)
[2017-09-04] MEDS: Enoxaparin 40 mg Syringe SC SCH (11:07)
--- NOTE | 2017-09-04 11:54 | CP.PCM.PN ---
Subjective - Date & Time of Evaluation Date of Evaluation: 09/04/17 Time of Evaluation: 11:15 - Subjective Subjective: NO CHEST PAIN BREATHING WELL Objective - Vital Signs/Intake and Output Vital Signs (last 24 hours): Temp Pulse Resp BP Pulse Ox 99.3 F 105 H 24 93/64 L 100 09/04/17 08:00 09/04/17 08:00 09/04/17 08:00 09/04/17 08:00 09/04/17 08:00 Intake and Output: 09/04/17 09/04/17 06:59 18:59 Intake Total 190 Output Total 450 Balance -260 - Medications Medications: Current Medications Acetaminophen (Tylenol 650 Mg Supp) 650 mg [place] Q6H PRN PRN Reason: Fever >100.4 F Enoxaparin Sodium (Lovenox) 40 mg SC DAILY [facility] PRN Reason: Protocol Last Admin: 09/04/17 11:07 Dose: Not Given Lactated Ringer's (Lactated Ringer's) 1,000 mls @ 75 mls/hr IV .[id number] [facility] Lactated Ringer's (Lactated Ringer's) 1,000 mls @ 75 mls/hr IV .[id number] [facility] Last Admin: 09/01/17 17:49 Dose: 75 mls/hr Lactated Ringer's (Lactated Ringer's 500ml) 500 mls @ 500 mls/hr IV .Q1H [facility] Last Admin: 09/01/17 20:45 Dose: 500 mls/hr Iron Sucrose 100 mg/ Sodium (Chloride) 105 mls @ 105 mls/hr IVPB DAILY [facility] Last Admin: 09/04/17 11:06 Dose: 105 mls/hr Insulin Human Regular (Humulin R) 1 units SC ACCU-CHECK [facility] PRN Reason: Protocol Last Admin: 09/04/17 06:33 Dose: Not Given Ondansetron HCl (Zofran Inj) 4 mg IVP Q6H PRN PRN Reason: Nausea/Vomiting Oxycodone/Acetaminophen (Percocet 5/325 Mg Tab) 1 tab PO Q6 PRN PRN Reason: Pain, moderate (4-7) Stop: 09/05/17 14:02 Last Admin: 09/02/17 16:34 Dose: 1 tab Oxycodone/Acetaminophen (Percocet 5/325 Mg Tab) 2 tab PO Q6 PRN PRN Reason: Pain, severe (8-10) Stop: 09/05/17 21:10 Last Admin: 09/04/17 08:52 Dose: 2 tab Pantoprazole Sodium (Protonix Ec Tab) 40 mg PO DAILY [facility] Last Admin: 09/04/17 08:54 Dose: 40 mg Prednisone (Prednisone Tab) 10 mg PO DAILY [facility] Last Admin: 09/04/17 08:53 Dose: 10 mg - Labs Labs: 09/04/17 04:20 09/04/17 04:20 - Respiratory Exam Respiratory Exam: Clear to Ausculation Bilateral - Cardiovascular Exam Cardiovascular Exam: REGULAR RHYTHM, +S1, +S2 - Additional Findings Additional findings: MORTGAGE UNDERWRITER NSR Assessment and Plan - Assessment and Plan (Free Text) Plan: CONTINUE LOVENOX AND PAIN MEDICATIONS
[2017-09-04] MEDS ORDERED: Benzocaine/Menthol (Cepacol) Lozenge PO PRN (12:43)
--- NOTE | 2017-09-04 13:51 | CP.CCUPN ---
CCU Subjective - Physician Review Subjective (Free Text): Awake and alert, has been OOB to chair; c/o left leg and hip pain, especially over the left thigh where an JESSIKA wrapping is in place. No diminished pulses or firmness noted, no palpable pain, no skin discoloration or ecchymosis. No palpable cords noted. Other vitals and I/O's reviewed. No fever spikes noted last 48H. ROS: No other pertinent negs or positives on 10+ system review. PMSFH: All Nursing and physician documentation reviewed to date; no new pertinent info noted relevant to current medical problems. MAJOR PROBLEMS: 1. POD #3 Left THR 2. Acute Anemia, 2 Blood Loss 3. H/o RA on chronic immunosuppressive therapy PLAN: 1. Will temporarily remove JESSIKA wrap if OK with Ortho, consider Doppler US left thigh to r/o DVT , SVT. 2. Consider PRBCs, but no hypotension nor desaturation noted. 3. Resume Lovenox, watch serial HGB levels. 4. OOB as tolerated, discharge to rehab anticipated. CCU Objective - Vital Signs / Intake & Output Vital Signs (Last 4 hours): Vital Signs Temp Pulse Resp BP Pulse Ox 09/04/17 12:00 97.3 F L 96 H 15 87/56 L 100 Intake and Output (Last 8hrs): Intake & Output 09/03/17 09/04/17 09/04/17 22:59 06:59 14:59 Intake Total 370 60 Output Total 350 100 Balance 20 -40 Intake: IV 10 Oral 360 60 Output: Urine 350 100 Urine, Voided 350 100 - Physical Exam Head: Positive for: Atraumatic, Normocephalic. Negative for: Tenderness, Contusion, Swelling, Ecchymosis Pupils: Positive for: PERRL. Negative for: Sluggish, Non-Reactive Extroacular Muscles: Positive for: EOMI. Negative for: Gaze Palsy, Entrapment Conjunctiva: Positive for: Normal. Negative for: Icteric Ears: Positive for: Normal Mouth: Positive for: Moist Mucous Membranes. Negative for: Dry, Drooling Nose (Internal): Positive for: Normal Inspection Neck: Positive for: Normal Range of Motion, Trachea Midline. Negative for: JVD Respiratory/Chest: Positive for: Clear to Auscultation, Good Air Exchange Cardiovascular: Positive for: Regular Rate and Rhythm, Normal S1, S2, Peripheal Pulses Present. Negative for: Murmurs, Tachycardic, Bradycardic Abdomen: Positive for: Normal Bowel Sounds. Negative for: Tenderness, Distention, Peritoneal Signs Upper Extremity: Positive for: Edema, Normal ROM, NORMAL PULSES, Capillary Refill < 2s. Negative for: Cyanosis Lower Extremity: Positive for: Edema, NORMAL PULSES, Capillary Refill < 2 s. Negative for: CALF TENDERNESS, Cyanosis Neurological: Positive for: GCS=15, CN II-XII Intact, Motor Func Grossly Intact Skin: Positive for: Warm. Negative for: Rashes Psychiatric: Positive for: Alert, Oriented x 3, Normal Concentration - Medications Active Medications: Active Medications Generic Name Dose Route Start Last Admin Trade Name Freq PRN Reason Stop Dose Admin Acetaminophen 650 mg 09/01/17 15:16 Tylenol 650 Mg Supp ND Q6H PRN Fever >100.4 F Benzocaine/Menthol 1 alivia 09/04/17 12:43 09/04/17 13:02 Cepacol Sore Throat PO 1 alivia Q2 PRN Administration Sore Throat Enoxaparin Sodium 40 mg 09/02/17 09:00 09/04/17 11:07 Lovenox SC Not Given DAILY [facility] Protocol Lactated Ringer's 1,000 mls @ 75 mls/hr 09/01/17 14:30 Lactated Ringer's IV .[id number] [facility] Lactated Ringer's 1,000 mls @ 75 mls/hr 09/01/17 17:15 09/01/17 17:49 Lactated Ringer's IV 75 mls/hr .[id number] [facility] Administration Lactated Ringer's 500 mls @ 500 mls/hr 09/01/17 20:45 09/01/17 20:45 Lactated Ringer's 500ml IV 500 mls/hr .Q1H [facility] Administration Iron Sucrose 100 mg/ Sodium 105 mls @ 105 mls/hr 09/04/17 09:00 09/04/17 11: 06 Chloride IVPB 105 mls/hr DAILY [facility] Administration Insulin Human Regular 1 units 09/02/17 17:00 09/04/17 12:23 Humulin R SC Not Given ACCU-CHECK [facility] Protocol Ondansetron HCl 4 mg 09/01/17 15:16 Zofran Inj IVP Q6H PRN Nausea/Vomiting Oxycodone/Acetaminophen 1 tab 09/02/17 14:01 09/02/17 16:34 Percocet 5/325 Mg Tab PO 09/05/17 14:02 1 tab Q6 PRN Administration Pain, moderate (4-7) Oxycodone/Acetaminophen 2 tab 09/02/17 21:09 09/04/17 08:52 Percocet 5/325 Mg Tab PO 09/05/17 21:10 2 tab Q6 PRN Administration Pain, severe (8-10) Pantoprazole Sodium 40 mg 09/03/17 09:00 09/04/17 08:54 Protonix Ec Tab PO 40 mg DAILY [facility] Administration Prednisone 10 mg 09/02/17 09:00 09/04/17 08:53 Prednisone Tab PO 10 mg DAILY [facility] Administration - Patient Studies Lab Studies: Lab Studies 09/04/17 09/04/17 09/04/17 Range/Units 11:21 10:50 05:06 WBC (4.8-10.8) K/uL RBC (3.80-5.20) Mil/uL Hgb (12.0-16.0) g/dL Hct (34.0-47.0) % MCV (81.0-99.0) fl MCH (27.0-31.0) pg MCHC (33.0-37.0) g/dL RDW (11.5-14.5) % Plt Count (130-400) K/uL Sodium (132-148) mmol/l Potassium (3.6-5.0) MMOL/L Chloride (98-107) mmol/L Carbon Dioxide (22-30) mmol/L Anion Gap (10-20) BUN (7-17) mg/dl Creatinine (0.7-1.2) mg/dL Est GFR ( Amer) Est GFR (Non-Af Amer) POC Glucose (mg/dL) 147 H 141 H (65-110) mg/dL Random Glucose (65-105) mg/dL Calcium (8.4-10.2) mg/dL Total Bilirubin (0.2-1.3) mg/dl AST (14-36) U/L ALT (9-52) U/L Alkaline Phosphatase (38-126) U/L Total Protein (6.3-8.2) G/DL Albumin (3.5-5.0) g/dL Globulin (2.2-3.9) gm/dL Albumin/Globulin Ratio (1.0-2.1) Blood Type O POSITIVE Antibody Screen Negative Crossmatch See Detail BBK History Checked Patient has bt 09/04/17 09/04/17 09/03/17 Range/Units 04:20 04:20 19:42 WBC 8.0 (4.8-10.8) K/uL RBC 3.01 L (3.80-5.20) Mil/uL Hgb 8.5 L (12.0-16.0) g/dL Hct 25.6 L (34.0-47.0) % MCV 85.1 (81.0-99.0) fl MCH 28.2 (27.0-31.0) pg MCHC 33.1 (33.0-37.0) g/dL RDW 17.9 H (11.5-14.5) % Plt Count 199 (130-400) K/uL Sodium 138 (132-148) mmol/l Potassium 3.8 (3.6-5.0) MMOL/L Chloride 105 (98-107) mmol/L Carbon Dioxide 26 (22-30) mmol/L Anion Gap 11 (10-20) BUN 12 (7-17) mg/dl Creatinine 0.5 L (0.7-1.2) mg/dL Est GFR ( Amer) > 60 Est GFR (Non-Af Amer) > 60 POC Glucose (mg/dL) 155 H (65-110) mg/dL Random Glucose 124 H (65-105) mg/dL Calcium 7.9 L (8.4-10.2) mg/dL Total Bilirubin 0.9 (0.2-1.3) mg/dl AST 87 H D (14-36) U/L ALT 68 H D (9-52) U/L Alkaline Phosphatase 130 H (38-126) U/L Total Protein 5.8 L (6.3-8.2) G/DL Albumin 2.7 L (3.5-5.0) g/dL Globulin 3.0 (2.2-3.9) gm/dL Albumin/Globulin Ratio 0.9 L (1.0-2.1) Blood Type Antibody Screen Crossmatch BBK History Checked 09/03/17 09/01/17 Range/Units 15:46 06:30 WBC (4.8-10.8) K/uL RBC (3.80-5.20) Mil/uL Hgb (12.0-16.0) g/dL Hct (34.0-47.0) % MCV (81.0-99.0) fl MCH (27.0-31.0) pg MCHC (33.0-37.0) g/dL RDW (11.5-14.5) % Plt Count (130-400) K/uL Sodium (132-148) mmol/l Potassium (3.6-5.0) MMOL/L Chloride (98-107) mmol/L Carbon Dioxide (22-30) mmol/L Anion Gap (10-20) BUN (7-17) mg/dl Creatinine (0.7-1.2) mg/dL Est GFR ( Amer) Est GFR (Non-Af Amer) POC Glucose (mg/dL) 172 H (65-110) mg/dL Random Glucose (65-105) mg/dL Calcium (8.4-10.2) mg/dL Total Bilirubin (0.2-1.3) mg/dl AST (14-36) U/L ALT (9-52) U/L Alkaline Phosphatase (38-126) U/L Total Protein (6.3-8.2) G/DL Albumin (3.5-5.0) g/dL Globulin (2.2-3.9) gm/dL Albumin/Globulin Ratio (1.0-2.1) Blood Type Antibody Screen Crossmatch See Detail BBK History Checked Laboratory Results - last 24 hr 09/01/17 09/03/17 09/03/17 06:30 15:46 19:42 WBC RBC Hgb Hct MCV MCH MCHC RDW Plt Count Sodium Potassium Chloride Carbon Dioxide Anion Gap BUN Creatinine Est GFR ( Amer) Est GFR (Non-Af Amer) POC Glucose (mg/dL) 172 H 155 H Random Glucose Calcium Total Bilirubin AST ALT Alkaline Phosphatase Total Protein Albumin Globulin Albumin/Globulin Ratio Blood Type Antibody Screen Crossmatch See Detail BBK History Checked 09/04/17 09/04/17 09/04/17 04:20 04:20 05:06 WBC 8.0 RBC 3.01 L Hgb 8.5 L Hct 25.6 L MCV 85.1 MCH 28.2 MCHC 33.1 RDW 17.9 H Plt Count 199 Sodium 138 Potassium 3.8 Chloride 105 Carbon Dioxide 26 Anion Gap 11 BUN 12 Creatinine 0.5 L Est GFR ( Amer) > 60 Est GFR (Non-Af Amer) > 60 POC Glucose (mg/dL) 141 H Random Glucose 124 H Calcium 7.9 L Total Bilirubin 0.9 AST 87 H D ALT 68 H D Alkaline Phosphatase 130 H Total Protein 5.8 L Albumin 2.7 L Globulin 3.0 Albumin/Globulin Ratio 0.9 L Blood Type Antibody Screen Crossmatch BBK History Checked 09/04/17 09/04/17 10:50 11:21 WBC RBC Hgb Hct MCV MCH MCHC RDW Plt Count Sodium Potassium Chloride Carbon Dioxide Anion Gap BUN Creatinine Est GFR ( Amer) Est GFR (Non-Af Amer) POC Glucose (mg/dL) 147 H Random Glucose Calcium Total Bilirubin AST ALT Alkaline Phosphatase Total Protein Albumin Globulin Albumin/Globulin Ratio Blood Type O POSITIVE Antibody Screen Negative Crossmatch See Detail BBK History Checked Patient has bt Fingerstick Blood Sugar Results: 147 Review of Systems - Review of Systems All systems: reviewed and no additional remarkable complaints except (as above) Critical Care Progress Note - Nutrition Nutrition: Nutrition Category Date Time Status Regular Diet [DIET] Diets 09/03/17 Breakfast Active
--- NOTE | 2017-09-04 14:33 | CP.PCM.DIS ---
Provider - Provider Date of Admission: 09/01/17 15:15 Attending physician: Yousuf Sal Primary care physician: Tyler Goodson III, MD Consults: Ortho : Dr Goodson Cardio : Dr Willams Time Spent in preparation of Discharge (in minutes): 40 Diagnosis - Discharge Diagnosis (1) Status post total hip replacement, left Status: Acute (2) Rheumatoid arthritis Status: Chronic (3) Postoperative anemia due to acute blood loss Status: Acute (4) Steroid-induced hyperglycemia Status: Chronic (5) DVT prophylaxis Status: Acute Hospital Course - Lab Results Lab Results: Micro Results 09/01/17 09:09 Nose MRSA Culture (Admit) - Final MRSA NOT DETECTED Most Recent Lab Values WBC 8.0 K/uL (4.8-10.8) 09/04/17 04:20 RBC 3.01 Mil/uL (3.80-5.20) L 09/04/17 04:20 Hgb 8.5 g/dL (12.0-16.0) L 09/04/17 04:20 Hct 25.6 % (34.0-47.0) L 09/04/17 04:20 MCV 85.1 fl (81.0-99.0) 09/04/17 04:20 MCH 28.2 pg (27.0-31.0) 09/04/17 04:20 MCHC 33.1 g/dL (33.0-37.0) 09/04/17 04:20 RDW 17.9 % (11.5-14.5) H 09/04/17 04:20 Plt Count 199 K/uL (130-400) 09/04/17 04:20 MPV 7.5 fl (7.2-11.7) 09/01/17 17:20 Neut % (Auto) 90.4 % (50.0-75.0) H 09/01/17 17:20 Lymph % (Auto) 2.7 % (20.0-40.0) L 09/01/17 17:20 [place] % (Auto) 6.6 % (0.0-10.0) 09/01/17 17:20 Eos % (Auto) 0.0 % (0.0-4.0) 09/01/17 17:20 Baso % (Auto) 0.3 % (0.0-2.0) 09/01/17 17:20 Neut # 13.0 K/uL (1.8-7.0) H 09/01/17 17:20 Lymph # 0.4 K/uL (1.0-4.3) L 09/01/17 17:20 [place] # 0.9 K/uL (0.0-0.8) H 09/01/17 17:20 Eos # 0.0 K/uL (0.0-0.7) 09/01/17 17:20 Baso # 0.0 K/uL (0.0-0.2) 09/01/17 17:20 Neutrophils % (Manual) 86 % (42-75) H 09/01/17 17:20 Band Neutrophils % 3 % (0-2) H 09/01/17 17:20 Lymphocytes % (Manual) 4 % (20-50) L 09/01/17 17:20 Monocytes % (Manual) 7 % (0-10) 09/01/17 17:20 Toxic Granulation Present 09/01/17 17:20 Platelet Estimate Normal (NORMAL) 09/01/17 17:20 Hypochromasia (manual) Slight 09/01/17 17:20 pCO2 40 mm/Hg (35-45) 09/02/17 04:02 pO2 186 mm/Hg (80-100) H 09/02/17 04:02 HCO3 23.3 mmol/L (21-28) 09/02/17 04:02 ABG pH 7.37 (7.35-7.45) 09/02/17 04:02 ABG Total CO2 24.3 mmol/L (22-28) 09/02/17 04:02 ABG O2 Saturation 98.7 % (95-98) H 09/02/17 04:02 ABG O2 Content 15.8 ML/dL (15-23) 09/02/17 04:02 ABG Base Excess -2.0 mmol/L (-2.0-3.0) 09/02/17 04:02 ABG Hemoglobin 11.5 g/dL (11.7-17.4) L 09/02/17 04:02 ABG Carboxyhemoglobin 1.3 % (0.5-1.5) 09/02/17 04:02 POC ABG HHb (Measured) 1.3 % (0.0-5.0) 09/02/17 04:02 ABG Methemoglobin 2.1 % (0.0-3.0) 09/02/17 04:02 ABG O2 Capacity 16.0 mL/dL (16-24) 09/02/17 04:02 Alexandro Test Yes 09/02/17 04:02 A-a O2 Difference 49.0 mm/Hg 09/02/17 04:02 Hgb O2 Saturation 95.3 % (95.0-98.0) 09/02/17 04:02 Vent Mode A/c 09/02/17 04:02 Mechanical Rate 12 09/02/17 04:02 FiO2 40.0 % 09/02/17 04:02 Tidal Volume 400 09/02/17 04:02 PEEP 5 09/02/17 04:02 Sodium 138 mmol/l (132-148) 09/04/17 04:20 Potassium 3.8 MMOL/L (3.6-5.0) 09/04/17 04:20 Chloride 105 mmol/L (98-107) 09/04/17 04:20 Carbon Dioxide 26 mmol/L (22-30) 09/04/17 04:20 Anion Gap 11 (10-20) 09/04/17 04:20 BUN 12 mg/dl (7-17) 09/04/17 04:20 Creatinine 0.5 mg/dL (0.7-1.2) L 09/04/17 04:20 Est GFR ( Amer) > 60 09/04/17 04:20 Est GFR (Non-Af Amer) > 60 09/04/17 04:20 POC Glucose (mg/dL) 147 mg/dL (65-110) H 09/04/17 11:21 Random Glucose 124 mg/dL (65-105) H 09/04/17 04:20 Calcium 7.9 mg/dL (8.4-10.2) L 09/04/17 04:20 Total Bilirubin 0.9 mg/dl (0.2-1.3) 09/04/17 04:20 AST 87 U/L (14-36) H D 09/04/17 04:20 ALT 68 U/L (9-52) H D 09/04/17 04:20 Alkaline Phosphatase 130 U/L (38-126) H 09/04/17 04:20 Total Protein 5.8 G/DL (6.3-8.2) L 09/04/17 04:20 Albumin 2.7 g/dL (3.5-5.0) L 09/04/17 04:20 Globulin 3.0 gm/dL (2.2-3.9) 09/04/17 04:20 Albumin/Globulin Ratio 0.9 (1.0-2.1) L 09/04/17 04:20 Blood Type O POSITIVE 09/04/17 10:50 Blood Type Confirm O POSITIVE 09/01/17 07:10 Antibody Screen Negative 09/04/17 10:50 Crossmatch See Detail 09/04/17 10:50 BBK History Checked Patient has bt 09/04/17 10:50 - Hospital Course Hospital Course: 57 years old female with hx of Rheumatoid Arthritis and both left and right knee replacement came with three months of worsening pain to the left hip after a mechanical fall. She was diagnosed with left hip fracture a month later and ambulates with a cane and walker. She was admitted and underwent Left THR. Patient had a difficult intubation and post op was kept intubated , monitored in ICU and given stress dose of steroids for possible vocal cord edema. At present hemodynamically stable, and will be d/c to [facility]. 1.Suspected airway edema post difficult intubation kept intubated post op and received steroids IV s/p successful extubation and saturating 100 % in RA 2. s/p Left THR history of Fracture Left Femur head s/p mechanical fall pain is controlled Ortho Dr. Zaldivar PT/OT Continue lovenox for DVT prophylaxis incentive spirometry d/c pt to [facility] 3.Acute blood loss anemia s/p PRBc transfusion IV Venofer given 4.Rheumatoid Arthritis continue Pain management will restart home medication Embrel/Methotrexate/Sulfasalazine/leflunomide Continue Prednisone Po 5. Leukocytosis most likely steroid induced 6.Hyperglycemia most likely steroid induced Monitor for now 5. DVT Prophylaxis on lovenox SCD Discharge Exam - Head Exam Head Exam: ATRAUMATIC, NORMAL INSPECTION, NORMOCEPHALIC - Eye Exam Eye Exam: EOMI, Normal appearance, PERRL Pupil Exam: NORMAL ACCOMODATION - ENT Exam ENT Exam: Mucous Membranes Moist, Normal External Ear Exam - Neck Exam Neck exam: Full Rom - Respiratory Exam Respiratory Exam: NORMAL BREATHING PATTERN. absent: Respiratory Distress - Cardiovascular Exam Cardiovascular Exam: REGULAR RHYTHM, +S1, +S2 - GI/Abdominal Exam GI & Abdominal Exam: Normal Bowel Sounds, Soft. absent: Tenderness - Extremities Exam Extremities exam: normal capillary refill, pedal pulses present Additional comments: no calf tenderness Left hip with surgical dressing intact - Back Exam Back exam: absent: CVA tenderness (L), CVA tenderness (R) - Neurological Exam Neurological exam: Alert, CN II-XII Intact, Oriented x3, Reflexes Normal - Psychiatric Exam Psychiatric exam: Normal Affect, Normal Mood - Skin Skin Exam: Dry, Normal Color, Warm Discharge Plan - Follow Up Plan Condition: GOOD Disposition: TRANSF TO SNF Additional Instructions: d/c to [facility] after blood transfusion Referrals: Tyler Goodson III, MD [Primary Care Provider] -
[2017-09-04 18:59] VITALS: O2SAT 99
[2017-09-04 19:01] VITALS: BP 120/90; PULSE 90; RESP 18; TEMP 98.4
== END 2017-09-04 18:10 | DRG 469 ==
LOC: H.OPSURG 06:04 → H.ICU/CCU 15:15
PROVIDERS: ADMIT Internal Medicine; ATTEND Internal Medicine
PROC: 3E0T3BZ Introduction of Anesthetic Agent into Peripheral Nerves and Plexi, Percutaneous Approach (ICD-10-PCS; 2017-09-01)
PROC: 0QS704Z Reposition Left Upper Femur with Internal Fixation Device, Open Approach (ICD-10-PCS; principal; 2017-09-02)
PROC: 0SRB0JZ Replacement of Left Hip Joint with Synthetic Substitute, Open Approach (ICD-10-PCS; 2017-09-02)
PROC: 0SNB0ZZ Release Left Hip Joint, Open Approach (ICD-10-PCS; 2017-09-02)
PROC: 8E0YXBF Computer Assisted Procedure of Lower Extremity, With Fluoroscopy (ICD-10-PCS; 2017-09-02)
DX: M16.12 Unilateral primary osteoarthritis, left hip (principal); S72.002A Fracture of unspecified part of neck of left femur, initial encounter for closed fracture; D62 Acute posthemorrhagic anemia; K56.0 Paralytic ileus; M06.9 Rheumatoid arthritis, unspecified; D72.829 Elevated white blood cell count, unspecified; T38.0X5A Adverse effect of glucocorticoids and synthetic analogues, initial encounter; T88.4XXA Failed or difficult intubation, initial encounter; F17.200 Nicotine dependence, unspecified, uncomplicated; M65.9 Synovitis and tenosynovitis, unspecified; R73.9 Hyperglycemia, unspecified; W19.XXXA Unspecified fall, initial encounter; Y93.9 Activity, unspecified; Y92.9 Unspecified place or not applicable; D63.8 Anemia in other chronic diseases classified elsewhere

== ENCOUNTER 2017-09-16 22:43 | Inpatient (IN) | payer MEDICARE ==
[2017-09-16 22:43] VITALS: BMI 29.2
--- NOTE | 2017-09-16 23:49 | ED PDOC ---
Lower Extremity Pain/Injury Time Seen by Provider: 09/16/17 23:17 Chief Complaint (Nursing): Hip Pain Chief Complaint (Provider): Hip Pain History Per: Patient History/Exam Limitations: no limitations Onset/Duration Of Symptoms: Days (x2) Current Symptoms Are (Timing): Still Present Additional Complaint(s): 57 year old female presents to ED with complaints of left hip pain x1 week and recently had a left hip replacement done by Dr. Goodson x15 days ago. Patient states that onset of pain occurred while at physical therapy and with use of left hip. (+) limited ROM of left hip and pain with movement. Patient states she followed up with Dr. Goodson and he noted the possibility of a problem with the prosthetic, causing him to sent the patient to be evaluated at the ED. PCP: Tyler Goodson III Past Medical History Reviewed: Historical Data, Nursing Documentation, Vital Signs Vital Signs: Last Vital Signs Temp 99.5 F 09/16/17 22:45 Pulse 86 09/16/17 22:45 Resp 18 09/16/17 22:45 BP 98/61 L 09/16/17 22:45 Pulse Ox 99 09/16/17 22:45 - Medical History PMH: No Chronic Diseases, Rheumatoid Arthritis Denies: Chronic Kidney Disease - Surgical History Surgical History: Denies: No Surg Hx Other surgeries: Left hip replacement - Family History Family History: States: No Known Family Hx - Living Arrangements Living Arrangements: With Family - Home Medications Home Medications: Ambulatory Orders Medication Instructions Recorded Enoxaparin [Lovenox] 40 mg SC DAILY syr 09/04/17 oxyCODONE/Acetaminophen [Percocet 1 tab PO Q6 PRN tab 09/04/17 5/325 mg Tab] oxyCODONE/Acetaminophen [Percocet 2 tab PO Q6 PRN tab 09/04/17 5/325 mg Tab] Acetaminophen [Tylenol 325mg tab] 650 mg PO Q4 PRN 09/17/17 Bacitracin 1 each TP DAILY 09/17/17 Bacitracin 1 each TP DAILY 09/17/17 Benzocaine/Menthol [Cepacol Sore 1 each PO Q2 PRN 09/17/17 Throat Lozenge] Bisacodyl [Ducolax] 10 mg RC DAILY PRN 09/17/17 Docusate Sodium [Colace] 200 mg PO DAILY 09/17/17 Ferrous Sulfate [Feosol] 325 mg PO BID 09/17/17 Glycerin [Glycerin Laxative] 5.4 gm RC DAILY PRN 09/17/17 Lidoderm Patch Removal 1 unit TP DAILY 09/17/17 Magnesium Hydroxide [Milk of 30 ml PO Q12 PRN 09/17/17 Magnesia] Methotrexate 15 mg PO QWK 09/17/17 Multivitamin with Minerals 1 tab PO DAILY 09/17/17 [Bee-Zee] Ondansetron HCl [Zofran] 4 mg PO Q6 PRN 09/17/17 Polyethylene Glycol 3350 [Glycolax] 17 gm PO DAILY PRN 09/17/17 Prednisone [Mireya] 7.5 mg PO DAILY 09/17/17 Sennosides [Senna] 8.6 mg PO HS PRN 09/17/17 SulfaSALAzine [Azulfidine] 500 mg PO BID 09/17/17 Zinc Oxide [Boudreauxs] 10 gm TP DAILY 09/17/17 - Allergies Allergies/Adverse Reactions: Allergies Allergy/AdvReac Type Severity Reaction Status Date / Time No Known Allergies Allergy Verified 09/01/17 07:02 Review of Systems ROS Statement: Except As Marked, All Systems Reviewed And Found Negative Musculoskeletal: Positive for: Other ((+) left hip pain with movement and limited ROM) Physical Exam - Reviewed Nursing Documentation Reviewed: Yes Vital Signs Reviewed: Yes - Physical Exam Appears: Positive for: Well, Non-toxic, No Acute Distress Head Exam: Positive for: ATRAUMATIC, NORMAL INSPECTION, NORMOCEPHALIC Skin: Positive for: Normal Color, Warm, Dry Eye Exam: Positive for: Normal appearance Cardiovascular/Chest: Positive for: Regular Rate, Rhythm. Negative for: Murmur Respiratory: Positive for: Normal Breath Sounds. Negative for: Respiratory Distress Gastrointestinal/Abdominal: Positive for: Normal Exam Back: Positive for: Normal Inspection Extremity: Positive for: Deformity (of left hip), Swelling (of left hip) Neurologic/Psych: Positive for: Alert, Oriented. Negative for: Motor/Sensory Deficits - Laboratory Results Result Diagrams: 09/17/17 00:03 09/17/17 00:03 - ECG O2 Sat by Pulse Oximetry: 99 (RA) Pulse Ox Interpretation: Normal Medical Decision Making Medical Decision Makin Initial impression: dislocation of prosthetic hip rule out fracture Initial plan: * T&S * Labs * PTT/PT * XR HIP LEFT * UA [address] Goodson, who recommends CT HIP Requests admission to hospital. * CT HIP 0122 CT FINDINGS: Bones/joints: Left total hip prosthetic is identified. The femoral component is dislocated laterally and cranially in relation to the acetabular component. Soft tissues: Persistent fluid collection with an air-fluid level deep to and medial to the staple line, likely perioperative seroma. Streak artifact from the patient's prosthetic precludes adequate evaluation of the adjacent musculature. IMPRESSION: Left hip dislocation. Air and fluid containing focus deep in the medial to the incision, as detailed above. XR reviewed: dislocation of hip replacement. Scribe Attestation: Documented by Lor Mahmood acting as a scribe for Marysol Hilario MD. Scribe Attestation: All medical record entries made by the Scribe were at my direction and personally dictated by me. I have reviewed the chart and agree that the record accurately reflects my personal performance of the history, physical exam, medical decision making, and the department course for this patient. I have also personally directed, reviewed, and agree with the discharge instructions and disposition. Disposition - Clinical Impression Clinical Impression: Dislocation of hip joint prosthesis - Patient ED Disposition Is Patient to be Admitted: Yes Discussed With DrTyler: Rommel Anderson Doctor Will See Patient In The: ED Counseled Patient/Family Regarding: Studies Performed, Diagnosis - Disposition Disposition Time: 00:30 Condition: FAIR - Pt Status Changed To: Hospital Disposition Of: Inpatient - Admit Certification Admit to Inpatient:: After my assessment, the patient will require hospitalization for at least two midnights. This is because of the severity of symptoms shown, intensity of services needed, and/or the medical risk in this patient being treated as an outpatient. - POA Present On Arrival: Falls Or Trauma
[2017-09-17 00:07] LABS: BASO # 0.1 K/uL (0.0-0.2); EOS # 0.1 K/uL (0.0-0.7); EOS % 1.2 % (0.0-4.0); HEMATOCRIT 29.1 % (34.0-47.0); LYMPH % 17.9 % (20.0-40.0); MEAN CELL VOLUME 87.1 fl (81.0-99.0); MEAN CORPUSCULAR HEMOGLOBIN 28.2 pg (27.0-31.0); MEAN CORPUSCULAR HGB CONC 32.4 g/dL (33.0-37.0); MEAN PLATELET VOLUME 6.8 fl (7.2-11.7); MONO # 0.5 K/uL (0.0-0.8); MONO % 8.1 % (0.0-10.0); NEUT # 4.1 K/uL (1.8-7.0); NEUT % 71.8 % (50.0-75.0); RED CELL DISTRIBUTION WIDTH 18.4 % (11.5-14.5); WHITE BLOOD COUNT 5.7 K/uL (4.8-10.8)
[2017-09-17 00:17] LABS: RBC URINE 13 /hpf (0-3); URINE BACTERIA RARE (<OCC); URINE BILIRUBIN NEGATIVE (NEGATIVE); URINE BLOOD NEGATIVE (NEGATIVE); URINE COLOR YELLOW (YELLOW); URINE GLUCOSE (UA) NEG (Normal); URINE KETONE NEGATIVE (NEGATIVE); URINE LEUKOCYTE ESTERASE NEG Leu/uL (Negative); URINE PROTEIN NEGATIVE (NEGATIVE); WBC URINE 7 /hpf (0-5)
[2017-09-17 00:18] LABS: BLOOD UREA NITROGEN 12 mg/dl (7-17); CARBON DIOXIDE 29 mmol/L (22-30); CHLORIDE 104 mmol/L (98-107); GFR AFRICAN-AMERICAN > 60; GLUCOSE,RANDOM 107 mg/dL (65-105); PARTIAL THROMBOPLASTIN TIME 33.8 Seconds (25.6-37.1); POTASSIUM 4.4 MMOL/L (3.6-5.0); SODIUM 138 mmol/l (132-148)
--- NOTE | 2017-09-17 01:22 | CT ---
EXAM: CT Left Lower Extremity Without Intravenous Contrast, Hip CLINICAL HISTORY: 57 years old, female; Pain; Hip; Left; Additional info: Left hip injury TECHNIQUE: Axial computed tomography images of the left hip without intravenous contrast. All CT scans at this facility use one or more dose reduction techniques, viz.: automated exposure control; ma/kV adjustment per patient size (including targeted exams where dose is matched to indication; i.e. head); or iterative reconstruction technique. Coronal and sagittal reformatted images were created and reviewed. COMPARISON: No relevant prior studies available. FINDINGS: Bones/joints: Left total hip prosthetic is identified. The femoral component is dislocated laterally and cranially in relation to the acetabular component. Soft tissues: Persistent fluid collection with an air-fluid level deep to and medial to the staple line, likely perioperative seroma. Streak artifact from the patient's prosthetic precludes adequate evaluation of the adjacent musculature. IMPRESSION: Left hip dislocation. Air and fluid containing focus deep in the medial to the incision, as detailed above.
[2017-09-17] MEDS ORDERED: Vitamin A/D oint 60G TP PRN (01:41)
[2017-09-17] MEDS ORDERED: BENZOCAINE PO PRN (04:04)
[2017-09-17] MEDS ORDERED: Magnesium Hydroxide Susp 30 ml UD PO PRN (04:04)
[2017-09-17] MEDS ORDERED: MENTHOL PO PRN (04:04)
[2017-09-17] MEDS ORDERED: GLYCERIN RC PRN (04:04)
[2017-09-17] MEDS ORDERED: POLYETHYLENE GLYCOL 17 GM PO PRN (04:04)
[2017-09-17] MEDS: Dextrose 5%/0.9% NS 1,000 ML IV ONE (04:11)
[2017-09-17] MEDS ORDERED: POLYETHYLENE GLYCOL 3350 17 GM/Dose PACKET PO PRN (06:29)
[2017-09-17] MEDS ORDERED: Benzocaine/Menthol (Cepacol) Lozenge PO PRN (06:31)
--- NOTE | 2017-09-17 07:35 | CP.PCM.CON ---
History of Present Illness - History of Present Illness History of Present Illness: 57F 16 days s/p left anterior THR complains of pain and difficulty walking. She doesnt recall any specific event where she first felt pain or noticed leg was shorter, she said maybe 09/13 or 09/14 she may have noticed it. SHe has been having difficulty walking since the surgery she states. Last PT was yesterday per patient. She denies numbness/tingling, falls, trauma. Review of Systems - Review of Systems All systems: reviewed and no additional remarkable complaints except - Constitutional Additional comments: denies fever/chillls - Musculoskeletal Musculoskeletal: As Per HPI - Neurological Neurological: As Per HPI Past Patient History - Past Medical History & Family History Past Medical History?: Yes Past Family History: Reviewed and not pertinent - Past Social History Smoking Status: Light Smoker < 10 Cigarettes Daily - CARDIAC Hx Cardiac Disorders: No - PULMONARY Hx Respiratory Disorders: No - NEUROLOGICAL Hx Neurological Disorder: No - HEENT Hx HEENT Problems: No - RENAL Hx Chronic Kidney Disease: No - ENDOCRINE/METABOLIC Hx Endocrine Disorders: No - HEMATOLOGICAL/ONCOLOGICAL Hx Blood Disorders: No - INTEGUMENTARY Hx Dermatological Problems: No - MUSCULOSKELETAL/RHEUMATOLOGICAL Hx Rheumatoid Arthritis: Yes - GASTROINTESTINAL Hx Gastrointestinal Disorders: No - GENITOURINARY/GYNECOLOGICAL Hx Genitourinary Disorders: No - PSYCHIATRIC Hx Psychophysiologic Disorder: No Hx Substance Use: No - SURGICAL HISTORY Hx Surgeries: Yes Hx Joint Replacement: Yes (right and left knee) Other/Comment: Left Hip Replacement - 2016 - ANESTHESIA Hx Anesthesia: Yes Hx Anesthesia Reactions: No Hx Malignant Hyperthermia: No Has any member of the family had a problem w/ anesthesia?: No Meds Allergies/Adverse Reactions: Allergies Allergy/AdvReac Type Severity Reaction Status Date / Time No Known Allergies Allergy Verified 09/01/17 07:02 - Medications Medications: Current Medications Acetaminophen (Tylenol 325mg Tab) 650 mg PO Q4 PRN PRN Reason: Fever >100.4 F Bacitracin (Bacitracin Oint) 1 applic TOP DAILY TONJA Benzocaine/Menthol (Cepacol Sore Throat) 1 alivia PO Q2 PRN PRN Reason: Sore Throat Bisacodyl (Dulcolax) 10 mg RC DAILY PRN PRN Reason: Constipation Docusate Sodium (Colace) 200 mg PO DAILY TONJA Ferrous Sulfate (Feosol) 325 mg PO BID TONJA Glycerin (Glycerin Adult Suppository) 1 sup [place] DAILY PRN PRN Reason: Constipation Dextrose/Sodium Chloride (Dextrose 5%/0.9% Ns 1000 Ml) 1,000 mls @ 60 mls/hr IV .[id number] ONE Stop: 09/17/17 17:37 Last Admin: 09/17/17 04:11 Dose: 60 mls/hr Magnesium Hydroxide (Milk Of Magnesia) 30 ml PO Q12 PRN PRN Reason: Constipation Morphine Sulfate (Morphine) 1 mg IVP Q4 PRN PRN Reason: Pain, moderate (4-7) Morphine Sulfate (Morphine) 2 mg IVP Q4 PRN PRN Reason: Pain, severe (8-10) Multivitamins/Minerals (Therapeutic-M Tab) 1 tab PO DAILY [facility] Ondansetron HCl (Zofran Tab) 4 mg PO Q6 PRN PRN Reason: Nausea/Vomiting Petrolatum (Boudreauxs) 1 appl TP DAILY [facility] Polyethylene Glycol (Miralax) 17 gm PO DAILY PRN PRN Reason: Constipation Sennosides (Senokot Tab) 8.6 mg PO HS PRN PRN Reason: Constipation Vitamin A (Vitamin A&D) 1 applic TP Q8 PRN PRN Reason: Dry skin Physical Exam - Constitutional Appears: Well, No Acute Distress - Extremities Exam Additional comments: +ROM ankle/toes, sensation intact, +DP pulses, calves soft NT neg homans incision intact LLE 5 inches short - Neurological Exam Neurological exam: Alert, Oriented x3 - Psychiatric Exam Psychiatric exam: Normal Affect, Normal Mood - Skin Skin Exam: Dry, Intact, Normal Color, Warm Results - Vital Signs Recent Vital Signs: Last Vital Signs Temp 97.9 F 09/17/17 03:10 Pulse 72 09/17/17 03:31 Resp 16 09/17/17 03:31 BP 105/64 09/17/17 03:31 Pulse Ox 99 09/17/17 03:41 - Labs Result Diagrams: 09/17/17 00:03 09/17/17 00:03 Labs: Laboratory Results - last 24 hr 09/17/17 09/17/17 09/17/17 00:03 00:03 00:03 WBC 5.7 RBC 3.34 L Hgb 9.4 L Hct 29.1 L MCV 87.1 D MCH 28.2 MCHC 32.4 L RDW 18.4 H Plt Count 337 D MPV 6.8 L Neut % (Auto) 71.8 Lymph % (Auto) 17.9 L [place] % (Auto) 8.1 Eos % (Auto) 1.2 Baso % (Auto) 1.0 Neut # 4.1 Lymph # 1.0 [place] # 0.5 Eos # 0.1 Baso # 0.1 PT 11.6 INR 1.0 APTT 33.8 Sodium 138 Potassium 4.4 Chloride 104 Carbon Dioxide 29 Anion Gap 10 BUN 12 Creatinine 0.4 L Est GFR ( Amer) > 60 Est GFR (Non-Af Amer) > 60 Random Glucose 107 H Calcium 9.0 Urine Color Urine Clarity Urine pH Ur Specific [place] Urine Protein Urine Glucose (UA) Urine Ketones Urine Blood Urine Nitrate Urine Bilirubin Urine Urobilinogen Ur Leukocyte Esterase Urine RBC (Auto) Urine Microscopic WBC Ur Squamous Epith Cells Urine Bacteria Blood Type Antibody Screen BBK History Checked 09/17/17 09/17/17 00:03 02:55 WBC RBC Hgb Hct MCV MCH MCHC RDW Plt Count MPV Neut % (Auto) Lymph % (Auto) [place] % (Auto) Eos % (Auto) Baso % (Auto) Neut # Lymph # [place] # Eos # Baso # PT INR APTT Sodium Potassium Chloride Carbon Dioxide Anion Gap BUN Creatinine Est GFR ( Amer) Est GFR (Non-Af Amer) Random Glucose Calcium Urine Color Yellow Urine Clarity Cloudy Urine pH 7.0 Ur Specific [place] 1.016 Urine Protein Negative Urine Glucose (UA) Neg Urine Ketones Negative Urine Blood Negative Urine Nitrate Negative Urine Bilirubin Negative Urine Urobilinogen 4.0 H Ur Leukocyte Esterase Neg Urine RBC (Auto) 13 H Urine Microscopic WBC 7 H Ur Squamous Epith Cells 1 Urine Bacteria Rare Blood Type O POSITIVE Antibody Screen Negative BBK History Checked Patient has bt Assessment & Plan (1) Dislocation of hip joint prosthesis Assessment and Plan: unclear mechanism or duration poor historian xrays reviewed, ? shift in cup position, will review with Dr. Goodson /u labs hold lovenox awaiting medical clearance plan CR vs revision 09/[address] Hamzah atkins nurse at [facility] stated to Dr. Goodson that family was manipulating hip while in the facility Status: Acute
[2017-09-17] MEDS ORDERED: MULTIVITAMIN WITH MINERALS PO SCH (09:00)
[2017-09-17] MEDS ORDERED: BACITRACIN TP SCH ×2 (09:00)
[2017-09-17] MEDS ORDERED: ZINC OXIDE TP SCH (09:00)
[2017-09-17] MEDS: Oxycodone/Acetaminophen 5/325 mg Tab PO PRN (10:53)
--- NOTE | 2017-09-17 11:35 | RAD ---
PROCEDURE: Left Hip X-ray Radiographs. HISTORY: Left hip pain deformity COMPARISON: None. FINDINGS: BONES: The pelvic ring is intact. There is no acute fracture. There is mild diffuse bone demineralization. JOINTS: There is superior and lateral dislocation of the left femoral prosthetic stem. SOFT TISSUES: There are skin jairo along the lateral soft tissues. OTHER FINDINGS: None. IMPRESSION: Superior and lateral dislocation of the left femoral prosthetic stem.
--- NOTE | 2017-09-17 21:14 | CP.PCM.HP ---
History of Present Illness - History of Present Illness History of Present Illness: This is a 57 year old female with hisotry of rheumatoid arthritis with prior right and left knee replacements who presented to the ED with complain of left hip pain for 1 week. She was admitted on 09/01 to this hospital and had a left hip replacement performed by Dr. Goodson at that time. The patient stated that during her physical therapy she had a sudden onset of pain to the left hip and had limited weight bearing and range of motion of her left hip due to pain wit movement. The patient subsequently followed up with Dr. Goodson and the patient then presented to the ED for the concern of possible dislocation of prosthetic hip. In the ED, the patient was found to be hemodynamically stable. CT of the hip is being performed which shows dislocation. She is to be admitted to the hospital for further workup and management including surgical revision. Patient denies chest pain, shortness of breath, fevers, chills, nausea, vomiting, diarrhea, headache. Rest of ROS as below. All of the patient's questions were answered at the bedside. PMH: She has history of rheumatoid arthritis. Denies any history of CAD or hyperlipidemia PSH: Bilateral TKR. Left hip replacement SH: Light smoker; no alcohol nor illegal drug use FH: No known significant family history Allergies: NKDA Present on Admission - Present on Admission Any Indicators Present on Admission: No Review of Systems - Hematologic/Lymphatic Additional comments: GENERAL/CONSTITUTIONAL: The patient denies fever, fatigue, weakness, weight gain or weight loss. HEAD, EYES, EARS, NOSE AND THROAT: Eyes - The patient denies pain, redness, loss of vision, double or blurred vision, flashing lights or spots, dryness, Ears, nose, mouth and throat. The patient denies ringing in the ears, loss of hearing, nosebleeds, loss of sense of smell, dry sinuses, sinusitis, post nasal drip, CARDIOVASCULAR: The patient denies chest pain, chest pressure, or irregular heartbeats, RESPIRATORY: The patient denies chronic dry cough, coughing up blood, coughing up mucus, wheezing, or shortness of breath. GASTROINTESTINAL: The patient denies decreased appetite, nausea, vomiting, vomiting blood or coffee ground material, heartburn, regurgitation, diarrhea, constipation, gas, blood in the stools, black tarry stools. GENITOURINARY: The patient denies difficult urination, pain or burning with urination, blood in the urine, frequency, or urgency MUSCULOSKELETAL: + Complains of left hip pain. The patient denies arm, buttock, thigh or calf cramps. No joint or muscle pain. No joint swelling, neck pain, back pain. SKIN: The patient denies easy bruising, skin redness, skin rash, hives, sensitivity to sun exposure, tightness, nodules or bumps, hair loss, color changes in the hands or feet with cold. NEUROLOGIC: The patient denies headache, dizziness, fainting, muscle spasm, loss of consciousness, sensitivity or pain in the hands and feet or memory loss. PSYCHIATRIC: The patient denies anxiety, depression, or thoughts of suicide. ENDOCRINE: The patient denies intolerance to hot or cold temperature, flushing, fingernail changes, increased thirst, increased salt intake or decreased sexual desire. HEMATOLOGIC/LYMPHATIC: The patient denies anemia, bleeding tendency or clotting tendency. ALLERGIC/IMMUNOLOGIC: The patient denies rhinitis, asthma, skin sensitivity, latex allergies or sensitivity. Past Patient History - Past Medical History & Family History Past Medical History?: Yes - Past Social History Smoking Status: Current Some Days Smoker - CARDIAC Hx Cardiac Disorders: No - PULMONARY Hx Respiratory Disorders: No - NEUROLOGICAL Hx Neurological Disorder: No - HEENT Hx HEENT Problems: No - RENAL Hx Chronic Kidney Disease: No - ENDOCRINE/METABOLIC Hx Endocrine Disorders: No - HEMATOLOGICAL/ONCOLOGICAL Hx Anemia: Yes - INTEGUMENTARY Hx Dermatological Problems: No - MUSCULOSKELETAL/RHEUMATOLOGICAL Hx Rheumatoid Arthritis: Yes - GASTROINTESTINAL Hx Gastrointestinal Disorders: No - GENITOURINARY/GYNECOLOGICAL Hx Genitourinary Disorders: No - PSYCHIATRIC Hx Psychophysiologic Disorder: No Hx Substance Use: No - SURGICAL HISTORY Hx Surgeries: Yes Hx Joint Replacement: Yes (right and left knee) - ANESTHESIA Hx Anesthesia: Yes Hx Anesthesia Reactions: No Meds Allergies/Adverse Reactions: Allergies Allergy/AdvReac Type Severity Reaction Status Date / Time No Known Allergies Allergy Verified 09/01/17 07:02 Physical Exam - Additional Findings Additional findings: EXAM: Vitals stable and reviewed GEN: WDWN, alert, cooperative HEENT: NCAT, PERRL, EOMI Neck: supple, no lymphadenopathy CARDIO: +S1S2, RRR, NO M/R/G LUNG: CTAB, NO W/R/R ABD: soft, NT, ND, no masses, no HSM EXT: Tenderness to left hip, no edema, pedal pulses present Neuro: AAOx3, Strength equal, bilateral UE/LE Psych: normal mood, normal affect Results - Vital Signs Recent Vital Signs: Last Vital Signs Temp 99.5 F 09/16/17 22:45 Pulse 86 09/16/17 22:45 Resp 18 09/16/17 22:45 BP 98/61 L 09/16/17 22:45 Pulse Ox 99 09/17/17 00:30 - Labs Result Diagrams: 09/17/17 00:03 09/17/17 00:03 Labs: Laboratory Results - last 24 hr 09/17/17 09/17/17 09/17/17 00:03 00:03 00:03 WBC 5.7 RBC 3.34 L Hgb 9.4 L Hct 29.1 L MCV 87.1 D MCH 28.2 MCHC 32.4 L RDW 18.4 H Plt Count 337 D MPV 6.8 L Neut % (Auto) 71.8 Lymph % (Auto) 17.9 L [place] % (Auto) 8.1 Eos % (Auto) 1.2 Baso % (Auto) 1.0 Neut # 4.1 Lymph # 1.0 [place] # 0.5 Eos # 0.1 Baso # 0.1 PT 11.6 INR 1.0 APTT 33.8 Sodium 138 Potassium 4.4 Chloride 104 Carbon Dioxide 29 Anion Gap 10 BUN 12 Creatinine 0.4 L Est GFR ( Amer) > 60 Est GFR (Non-Af Amer) > 60 Random Glucose 107 H Calcium 9.0 Urine Color Urine Clarity Urine pH Ur Specific [place] Urine Protein Urine Glucose (UA) Urine Ketones Urine Blood Urine Nitrate Urine Bilirubin Urine Urobilinogen Ur Leukocyte Esterase Urine RBC (Auto) Urine Microscopic WBC Ur Squamous Epith Cells Urine Bacteria 09/17/17 00:03 WBC RBC Hgb Hct MCV MCH MCHC RDW Plt Count MPV Neut % (Auto) Lymph % (Auto) [place] % (Auto) Eos % (Auto) Baso % (Auto) Neut # Lymph # [place] # Eos # Baso # PT INR APTT Sodium Potassium Chloride Carbon Dioxide Anion Gap BUN Creatinine Est GFR ( Amer) Est GFR (Non-Af Amer) Random Glucose Calcium Urine Color Yellow Urine Clarity Cloudy Urine pH 7.0 Ur Specific [place] 1.016 Urine Protein Negative Urine Glucose (UA) Neg Urine Ketones Negative Urine Blood Negative Urine Nitrate Negative Urine Bilirubin Negative Urine Urobilinogen 4.0 H Ur Leukocyte Esterase Neg Urine RBC (Auto) 13 H Urine Microscopic WBC 7 H Ur Squamous Epith Cells 1 Urine Bacteria Rare Assessment & Plan - Assessment and Plan (Free Text) Plan: ASSESSMENT - Dislocation of left hip prosthesis - History of rheumatoid arthritis 47 year old female with hx of rheumatoid arthritis and bilateral TKR, coming in with dislocation of left hip replacement requiring surgical revision PLAN - Admit to med/surg - Consultation with Dr. Goodson, called by ED - Morphine sliding scale PRN for pain control - PT/OT post surgery - Restart home medications for RA post surgery; Embrel/Methotrexate/ Sulfasalazine/Leflunomide - DVT prophylaxis with SCDs prior to surgery, Lovenox post surgery - Code status: Full After review of the medical records, vitals, current labwork, with no significant cardiac or pulmonary history, the patient is deemed at acceptable medical risk for surgery with mild cardiac risk and may proceed.
[2017-09-18] MEDS: Dextrose 5%/0.9% NS 1,000 ML IV ONE (00:09)
[2017-09-18 07:01] LABS: HEMATOCRIT 32.4 % (34.0-47.0); MEAN CELL VOLUME 88.2 fl (81.0-99.0); MEAN CORPUSCULAR HEMOGLOBIN 28.5 pg (27.0-31.0); MEAN CORPUSCULAR HGB CONC 32.3 g/dL (33.0-37.0); RED CELL DISTRIBUTION WIDTH 17.4 % (11.5-14.5)
[2017-09-18] MEDS ORDERED: Absorbable Gelatin Sponge Size 100 ONE (09:01)
--- NOTE | 2017-09-18 09:08 | RAD ---
PROCEDURE: CHEST RADIOGRAPH, 1 VIEW HISTORY: preop COMPARISON: 09/02/2017 FINDINGS: LUNGS: Clear. PLEURA: No pneumothorax or pleural fluid seen. CARDIOVASCULAR: Normal. OSSEOUS STRUCTURES: Severe bilateral glenohumeral osteoarthritis with humeral head remodeling. VISUALIZED UPPER ABDOMEN: Normal. OTHER FINDINGS: None. IMPRESSION: No acute infiltrate.
[2017-09-18] MEDS: Multivitamin With Minerals Tab PO SCH (09:11)
[2017-09-18] MEDS: Zinc Oxide 5 APPL/28 GM OINT TP SCH (09:12)
[2017-09-18] MEDS: Bacitracin OINT 15GM TOP SCH (09:13)
[2017-09-18] MEDS ORDERED: Succinylcholine 200 mg/10 ml Inj IV ONE (09:29)
[2017-09-18] MEDS ORDERED: Rocuronium 10 mg/ml (5 ml) ONE ×2 (09:29→13:32)
[2017-09-18] MEDS ORDERED: ePHEDrine 50 mg/ml Inj ONE (09:29)
[2017-09-18] MEDS ORDERED: Etomidate 20 mg/10ml Inj IV ONE (09:29)
[2017-09-18] MEDS ORDERED: Lidocaine 2% Jelly (5 ml) TOP ONE (09:29)
[2017-09-18] MEDS ORDERED: Phenylephrine 10 mg/ml Inj ONE (09:29)
[2017-09-18] MEDS ORDERED: Phenylephrine 0.5% Nasal Spray NAS ONE (09:43)
[2017-09-18] MEDS ORDERED: SENSORCAINE 0.5% W/EPINEPHRINE 50ML MDV IJ ONE (09:58)
--- NOTE | 2017-09-18 10:00 | CP.PCM.PN ---
<Veena Wright - Last Filed: 09/18/17 15:09> Subjective - Date & Time of Evaluation Date of Evaluation: 09/18/17 Time of Evaluation: 08:10 - Subjective Subjective: 57 y/o female seen at bedside this morning prior to surgery with Dr. Goodson. Pt confirms she has not had anything to eat or drink since after midnight yesterday. Pt states she is feeling well today and is ready for surgery. Pt denies F/C/N/V/CP/SOB at this time. Pt states she still is having pain in the left hip when she leans on it or touches it. Pt has not attempted to ambulate out of bed since she arrived to the hospital. Objective - Vital Signs/Intake and Output Vital Signs (last 24 hours): Temp Pulse Resp BP Pulse Ox 98.1 F 71 18 111/73 99 09/18/17 07:20 09/18/17 07:20 09/18/17 07:20 09/18/17 07:20 09/18/17 07:20 - Medications Medications: Current Medications Acetaminophen (Tylenol 325mg Tab) 650 mg PO Q4 PRN PRN Reason: Fever >100.4 F Bacitracin (Bacitracin Oint) 1 applic TOP DAILY [facility] Last Admin: 09/18/17 09:13 Dose: 1 applic Benzocaine/Menthol (Cepacol Sore Throat) 1 alivia PO Q2 PRN PRN Reason: Sore Throat Bisacodyl (Dulcolax) 10 mg RC DAILY PRN PRN Reason: Constipation Docusate Sodium (Colace) 200 mg PO DAILY [facility] Last Admin: 09/18/17 09:10 Dose: Not Given Ferrous Sulfate (Feosol) 325 mg PO BID [facility] Last Admin: 09/18/17 09:11 Dose: Not Given Glycerin (Glycerin Adult Suppository) 1 sup GA DAILY PRN PRN Reason: Constipation Magnesium Hydroxide (Milk Of Magnesia) 30 ml PO Q12 PRN PRN Reason: Constipation Multivitamins/Minerals (Therapeutic-M Tab) 1 tab PO DAILY [facility] Last Admin: 09/18/17 09:11 Dose: Not Given Ondansetron HCl (Zofran Tab) 4 mg PO Q6 PRN PRN Reason: Nausea/Vomiting Oxycodone/Acetaminophen (Percocet 5/325 Mg Tab) 1 tab PO Q4 PRN PRN Reason: Pain, moderate (4-7) Stop: 09/20/17 08:55 Last Admin: 09/17/17 10:53 Dose: 1 tab Petrolatum (Boudreauxs) 1 appl TP DAILY [facility] Last Admin: 09/18/17 09:12 Dose: 1 appl Polyethylene Glycol (Miralax) 17 gm PO DAILY PRN PRN Reason: Constipation Prednisone (Prednisone Tab) 7.5 mg PO DAILY [facility] Last Admin: 09/18/17 09:11 Dose: Not Given Sennosides (Senokot Tab) 8.6 mg PO HS PRN PRN Reason: Constipation Vitamin A (Vitamin A&D) 1 applic TP Q8 PRN PRN Reason: Dry skin - Labs Labs: 09/18/17 06:13 09/17/17 00:03 PT 11.6 Seconds (9.8-13.1) 09/17/17 00:03 INR 1.0 (0.9-1.2) 09/17/17 00:03 APTT 33.8 Seconds (25.6-37.1) 09/17/17 00:03 - Constitutional Appears: Well, Non-toxic, No Acute Distress - Head Exam Head Exam: ATRAUMATIC, NORMOCEPHALIC - Eye Exam Eye Exam: EOMI, Normal appearance, PERRL Pupil Exam: NORMAL ACCOMODATION, PERRL - ENT Exam ENT Exam: Mucous Membranes Moist, Normal Exam - Neck Exam Neck Exam: Full ROM, Normal Inspection - Respiratory Exam Respiratory Exam: Clear to Ausculation Bilateral, NORMAL BREATHING PATTERN Additional comments: no wheezing, no rales heard, no stridor - Cardiovascular Exam Cardiovascular Exam: REGULAR RHYTHM, +S1, +S2 Additional comments: no murmur, no gallop - GI/Abdominal Exam GI & Abdominal Exam: Soft, Normal Bowel Sounds - Rectal Exam Rectal Exam: Deferred - Extremities Exam Extremities Exam: Normal Capillary Refill Additional comments: joint deformities present to all 4 extremities. pedal pulses present. tenderness elicited upon palpation of L hip at surgical site - Back Exam Back Exam: NORMAL INSPECTION - Neurological Exam Neurological Exam: Abnormal Gait, Alert, Awake, Oriented x3 Additional comments: unable to bear weight to LLE secondary to pain - Psychiatric Exam Psychiatric exam: Normal Affect, Normal Mood - Skin Skin Exam: Intact, Normal Color Additional comments: surgical incision site to L hip at previous site of THR with jairo intact, no surrounding erythema, no dehiscence Assessment and Plan (1) Dislocation of hip joint prosthesis Assessment & Plan: Pt to OR today at 7:45am with Dr. Goodson for closed rdxn vs revisional L total hip arthroplasty NPO status confirmed with pt Will follow up with patient on floors after surgery Status: Acute (2) Anemia, blood loss Assessment & Plan: Hgb at 9.5 yesterday, transfused 1 unit Today Hgb at 10.5 Will monitor closely following surgery Status: Acute (3) DVT prophylaxis Assessment & Plan: Will start Lovenox 40mg tomorrow 9am Status: Acute (4) Rheumatoid arthritis Assessment & Plan: -resume home meds tomorrow- Embrel, Methotrexate, Sulfasalazine, Leflunomide -resume Prednisone tomorrow Status: Chronic <Angelita Young - Last Filed: 09/18/17 17:40> Objective - Vital Signs/Intake and Output Vital Signs (last 24 hours): Temp Pulse Resp BP Pulse Ox 96 F L 76 18 101/66 100 09/18/17 16:50 09/18/17 17:05 09/18/17 17:05 09/18/17 17:05 09/18/17 17:05 Intake and Output: 09/18/17 09/18/17 06:59 18:59 Intake Total 1850 Balance 1850 - Medications Medications: Current Medications Acetaminophen (Tylenol 325mg Tab) 650 mg PO Q4 PRN PRN Reason: Fever >100.4 F Bacitracin (Bacitracin Oint) 1 applic TOP DAILY [facility] Last Admin: 09/18/17 09:13 Dose: 1 applic Benzocaine/Menthol (Cepacol Sore Throat) 1 alivia PO Q2 PRN PRN Reason: Sore Throat Bisacodyl (Dulcolax) 10 mg RC DAILY PRN PRN Reason: Constipation Docusate Sodium (Colace) 200 mg PO DAILY [facility] Last Admin: 09/18/17 09:10 Dose: Not Given Ferrous Sulfate (Feosol) 325 mg PO BID [facility] Last Admin: 09/18/17 09:11 Dose: Not Given Glycerin (Glycerin Adult Suppository) 1 sup GA DAILY PRN PRN Reason: Constipation Hydromorphone HCl (Dilaudid) 0.5 mg IVP Q10M PRN PRN Reason: Pain, moderate (4-7) Stop: 09/18/17 17:47 Cefazolin Sodium/Dextrose (Ancef Iv 1 Gm Duplex) 1 gm in 50 mls @ 50 mls/hr IVPB Q8 TONJA PRN Reason: Protocol Stop: 09/19/17 01:59 Lactated Ringer's (Lactated Ringer's) 1,000 mls @ 100 mls/hr IV .Q10H [facility] Magnesium Hydroxide (Milk Of Magnesia) 30 ml PO Q12 PRN PRN Reason: Constipation Multivitamins/Minerals (Therapeutic-M Tab) 1 tab PO DAILY [facility] Last Admin: 09/18/17 09:11 Dose: Not Given Ondansetron HCl (Zofran Tab) 4 mg PO Q6 PRN PRN Reason: Nausea/Vomiting Ondansetron HCl (Zofran Inj) 4 mg IVP ONCE PRN PRN Reason: Nausea/Vomiting Stop: 09/18/17 17:47 Oxycodone/Acetaminophen (Percocet 5/325 Mg Tab) 1 tab PO Q4 PRN PRN Reason: Pain, moderate (4-7) Stop: 09/20/17 08:55 Last Admin: 09/17/17 10:53 Dose: 1 tab Petrolatum (Boudreauxs) 1 appl TP DAILY [facility] Last Admin: 09/18/17 09:12 Dose: 1 appl Polyethylene Glycol (Miralax) 17 gm PO DAILY PRN PRN Reason: Constipation Prednisone (Prednisone Tab) 7.5 mg PO DAILY [facility] Last Admin: 09/18/17 09:11 Dose: Not Given Sennosides (Senokot Tab) 8.6 mg PO HS PRN PRN Reason: Constipation Vitamin A (Vitamin A&D) 1 applic TP Q8 PRN PRN Reason: Dry skin - Labs Labs: 09/18/17 06:13 09/17/17 00:03 PT 11.6 Seconds (9.8-13.1) 09/17/17 00:03 INR 1.0 (0.9-1.2) 09/17/17 00:03 APTT 33.8 Seconds (25.6-37.1) 09/17/17 00:03 Attending/Attestation - Attestation I have personally seen and examined this patient.: Yes I have fully participated in the care of the patient.: Yes I have reviewed all pertinent clinical information, including history, physical exam and plan: Yes Notes (Text): Pt seen post op in PACU. Pt doing well, awake, oriented. VS stable. Pain controlled 1. Left THR Dislocation s/p Revision THR Ortho DR Goodson Pain mgt SCD Incentive Spirometry Ancef IV x 3 doses total for Abx proph PT/OT consult 2. Rheumatoid Arthritis cont Prednisone Pt also on Methrotrexate once a week Pain mgt
--- NOTE | 2017-09-18 10:19 | CARD ---
APPROVED REPORT EKG Measurement Heart [id number] <Conclusion> Normal sinus rhythm Normal ECG
[2017-09-18] MEDS ORDERED: Midazolam 2 MG/2 ML VIAL ONE (11:00)
[2017-09-18] MEDS ORDERED: Sodium Chloride 0.9% 1,000 ML IV ONE (11:00)
[2017-09-18] MEDS ORDERED: Lactated Ringer's 500 ML IV ONE (11:00)
[2017-09-18] MEDS ORDERED: Morphine 1 mg/ml preservative-free Inj(Duramorph) ONE (11:00)
[2017-09-18] MEDS ORDERED: Lactated Ringer's 1,000 ML IV ONE ×2 (12:30→18:00)
[2017-09-18] MEDS ORDERED: Sevoflurane - Inhalation Anesthetic Liq (250 ml) ONE (12:37)
[2017-09-18] MEDS ORDERED: Collagen Hemostat Powder MM ONE (14:07)
[2017-09-18] MEDS ORDERED: HEMOSTATIC MATRIX 10 ML DIS.NEEDLE TOP ONE (14:14)
[2017-09-18] MEDS ORDERED: Calcium Chloride 1000 mg/10 ml Syringe IV ONE (14:32)
[2017-09-18] MEDS ORDERED: Neostigmine Methylsulfate 3mg/3ml Syringe IV ONE (14:42)
[2017-09-18] MEDS ORDERED: Neostigmine Methylsulfate 2 MG/2 ML ML IV ONE ×2 (14:42→15:13)
[2017-09-18 14:50] LABS: FLUID TYPE SYNOVIAL FLUID
--- NOTE | 2017-09-18 15:22 | PCM.SURG1 ---
Surgeon's Initial Post Op Note - Surgeon's Notes Surgeon: Hamzah Intellectual Property Manager: SANTOS Falk/ 2nd bob Stover Type of Anesthesia: General Endo, Spinal Anesthesia Administered By: DR Parish Perea Pre-Operative Diagnosis: Dislocated L THR Operative Findings: as above Post-Operative Diagnosis: as above- post traumatic dislocation L THR Operation Performed: Revision L THR-. arthrotomy hip- excision scar and partial synovectomy. arthotomy-release iliopsoas tendon. excision skin/ subcutaneouis tissue and muscle. applx abduction split Specimen/Specimens Removed: synovium/outer bearing/femoral head Estimated Blood Loss: EBL {In ML}: 150 Blood Products Given: PRBC Drains Used: No Drains Post-Op Condition: Fair Date of Surgery/Procedure: 09/18/17 Time of Surgery/Procedure: 13:00 (time in room/anaesthjesia indcution time 1100AM)
[2017-09-18] MEDS ORDERED: HYDROmorphone 0.5 mg/0.5 ml ISec IVP PRN (15:46)
[2017-09-18] MEDS ORDERED: Lactated Ringer's 1,000 ML IV SCH (16:00)
[2017-09-18] MEDS ORDERED: ceFAZolin IV 1 gm in Dextrose 1 GM/50 ML BAG IVPB SCH (17:00)
--- NOTE | 2017-09-18 18:06 | RAD ---
PROCEDURE: Left Hip X-ray Radiographs. HISTORY: s/p Revision THR Left COMPARISON: September 17, 2017. FINDINGS: BONES: Compartments of left ESME satisfactorily aligned. No evidence of loosening or other pathologic process. JOINTS: Anatomic alignment bipolar left hip prosthesis. SOFT TISSUES: Normal. OTHER FINDINGS: None. IMPRESSION: Satisfactory postoperative status.
--- NOTE | 2017-09-18 18:15 | RAD ---
PROCEDURE: Fluoroscopy over 1 hour HISTORY: LEFT HIP COMPARISON: September 17, 2017. TECHNIQUE: Standard protocol for this study/examination. FINDINGS: Total fluoroscopic time (continuous mode) utilized during the procedure: 23.4 seconds. IMPRESSION: Submitted images from the current procedure: 18.0
--- NOTE | 2017-09-18 19:34 | PCM.ANESB3 ---
Femoral Nerve Block - Femoral Nerve Block Date of Procedure: 09/18/17 Anesthesiologist: Brit Pre-Procedure Diagnosis: Left prosthetic hip dislocation Post-Procedure Diagnosis: Same Procedure Performed: Femoral Nerve Block Left - Procedure Femoral Nerve Block: The procedure was explained to the patient that it is for the post-operative pain management. Consent was obtained after a thorough discussion with the patient regarding the benefits and possible complications of local anesthetic block of the femoral nerve at the inguinal crease area. The patient was brought to the operating room and standard monitors were applied. Time-out was held with the circulating nurse to confirm the correct surgery and the appropriate block. Under general anesthesia, patient was placed in supine position with fully extended lower extremities and the ___left groin exposed. The femoral artery was then carefully palpated. The ultrasound transducer was then applied to this area in the transverse plane and the femoral nerve was visualized lateral to the femoral artery and underneath the fascia iliaca. After thorough identification, the inguinal crease area was prepped with Chloraprep. At this point, a #22 gauge Stimuplex 4-inch needle was inserted immediately lateral to the femoral artery pulse at the inguinal crease and advanced perpendicularly. The needle was inserted to the ultrasound transducer in-plane towards the femoral nerve in a [id number] direction. Needle advancement was performed carefully under direct ultrasound visualization. Nerve stimulator was used and twitch of the quadriceps muscle was obtained at current of __0.4___ MA. After negative aspiration, _2____cc of __0.25___% __bupivicaine with 1:200, 000 epinephrine was injected and this was followed with ___28_ __ cc of __0.25 % ____bupivicaine with epinephrine . Under ultrasound guidance the local anesthetics were observed spreading below fascia iliaca and around the femoral nerve. The needle was then removed and replaced at the same skin entry point directed laterally in the direction of the lateral femoral cutaneous nerve. After negative aspiration, _2____cc of __0.25___% __ bupivicaine with 1:200,000 epinephrine was injected and this was followed with ___18___ cc of __0.25 % ____bupivicaine with epinephrine_ . Under ultrasound guidance the local anesthetics were observed spreading below fascia iliaca, above the iliacus muscle in the direction of the lateral femoral cutaneous nerve.The needle was removed intact. The patient had stable vital signs and was prepared for emergence. The patient tolerated the femoral nerve block well. She was extubated uneventfully and reported 0/10 pain in the left hip
--- NOTE | 2017-09-19 04:24 | CON ---
INFECTIOUS DISEASE CONSULTATION DATE: LOCATION: The patient is in room 650, bed 1. HISTORY OF PRESENT ILLNESS: She is a 57-year-old female with history of severe rheumatoid arthritis and who has previously had a right and left knee replacement. She came to the emergency department after having had a left hip replacement on 09/01 to 09/02. She had left hip pain for approximately one week. There is a history of sudden pain on doing the physiotherapy. She was seen by Dr. Goodson and he then sent her to the emergency room for evaluation for the possibility of dislocation of the hip. She was found to have this dislocation of the hip, which was repaired and procedure done in the OR today. PAST MEDICAL HISTORY: Includes rheumatoid arthritis. PAST SURGICAL HISTORY: Includes bilateral total knee replacements and left hip replacement. SOCIAL HISTORY: She smokes a few cigarettes, but there is no history of drug or alcohol abuse. PHYSICAL EXAMINATION: HEENT: Within normal limits. NECK: Supple. LUNGS: Clear. HEART: Regular, sinus rhythm. The patient was seen after the hip syrgery so there was surgical wrapping and dressings in place. LABORATORY DATA: Her white count was 5.7, hemoglobin 10.5, platelets 337. Creatinine 0.4, GFR greater than 60. Chest x-ray shows no acute infiltrate and CT scan shows basically dislocation of the hip. IMP:Dislocation of hip prosthesis antibiotics x 2 days ASSESSMENT: Traumatic hip replacement dislocation. We will presently treat with IV vancomycin, does not appear to have any infection involved as sometimes that precedes a hip dislocation, but we will cover with vancomycin 1 g IV piggyback q. 12. Tereso Jackson MD MTDJose Francisco
[2017-09-19 06:00] LABS: HEMATOCRIT 31.4 % (34.0-47.0); MEAN CELL VOLUME 87.8 fl (81.0-99.0); MEAN CORPUSCULAR HEMOGLOBIN 28.8 pg (27.0-31.0); MEAN CORPUSCULAR HGB CONC 32.8 g/dL (33.0-37.0); RED CELL DISTRIBUTION WIDTH 17.4 % (11.5-14.5); WHITE BLOOD COUNT 7.8 K/uL (4.8-10.8)
[2017-09-19 06:14] LABS: BLOOD UREA NITROGEN 10 mg/dl (7-17); CALCIUM 7.7 mg/dL (8.4-10.2); CARBON DIOXIDE 26 mmol/L (22-30); CHLORIDE 108 mmol/L (98-107); GFR AFRICAN-AMERICAN > 60; GLUCOSE,RANDOM 80 mg/dL (65-105); POTASSIUM 3.8 MMOL/L (3.6-5.0); SODIUM 138 mmol/l (132-148)
[2017-09-19] MEDS: Oxycodone/Acetaminophen 5/325 mg Tab PO PRN (08:50)
[2017-09-19] MEDS: Bacitracin OINT 15GM TOP SCH (08:51)
[2017-09-19] MEDS: Multivitamin With Minerals Tab PO SCH (08:52)
[2017-09-19] MEDS ORDERED: Enoxaparin 40 mg Syringe SC SCH (09:00)
[2017-09-19] MEDS: Zinc Oxide 5 APPL/28 GM OINT TP SCH (09:11)
--- NOTE | 2017-09-19 10:30 | CP.PCM.PN ---
Subjective - Date & Time of Evaluation Date of Evaluation: 09/19/17 Time of Evaluation: 08:40 - Subjective Subjective: 57 y/o female seen at bedside this morning 1 day s/p L revisional total hip replacement with Dr. Goodson. Pt states she is not experiencing much pain in the hip as she feels like the anesthesia is still acting. Pt admits to feeling slightly drowsy and lightheaded since the surgery, and describes it as a different feeling to the last time she was put under anesthesia. Pt denies any acute events overnight but states she had difficulty sleeping. Pt has not tried to ambulate out of bed. Pt states she is voiding normally. Pt admits to a small amount of vomiting yesterday after she ate her dinner. Pt denies any F/C/N/CP/ SOB. Pt denies any diarrhea or constipation. Pt admits to keeping the dressing on her L hip clean, dry and intact. Objective - Vital Signs/Intake and Output Vital Signs (last 24 hours): Temp Pulse Resp BP Pulse Ox 98.3 F 79 18 98/65 L 98 09/19/17 07:23 09/19/17 07:23 09/19/17 07:23 09/19/17 07:23 09/19/17 07:23 - Medications Medications: Current Medications Acetaminophen (Tylenol 325mg Tab) 650 mg PO Q4 PRN PRN Reason: Fever >100.4 F Bacitracin (Bacitracin Oint) 1 applic TOP DAILY [facility] Last Admin: 09/19/17 08:51 Dose: 1 applic Benzocaine/Menthol (Cepacol Sore Throat) 1 alivia PO Q2 PRN PRN Reason: Sore Throat Bisacodyl (Dulcolax) 10 mg RC DAILY PRN PRN Reason: Constipation Docusate Sodium (Colace) 200 mg PO DAILY [facility] Last Admin: 09/19/17 08:53 Dose: 200 mg Enoxaparin Sodium (Lovenox) 40 mg SC DAILY TONJA PRN Reason: Protocol Last Admin: 09/19/17 08:34 Dose: 40 mg Ferrous Sulfate (Feosol) 325 mg PO BID [facility] Last Admin: 09/19/17 08:54 Dose: 325 mg Glycerin (Glycerin Adult Suppository) 1 sup OH DAILY PRN PRN Reason: Constipation Lactated Ringer's (Lactated Ringer's) 1,000 mls @ 100 mls/hr IV .Q10H [facility] Vancomycin HCl 1 gm/ Sodium (Chloride) 250 mls @ 166.667 mls/hr IVPB Q12 TONJA PRN Reason: Protocol Last Admin: 09/19/17 08:32 Dose: 166.667 mls/hr Magnesium Hydroxide (Milk Of Magnesia) 30 ml PO Q12 PRN PRN Reason: Constipation Multivitamins/Minerals (Therapeutic-M Tab) 1 tab PO DAILY [facility] Last Admin: 09/19/17 08:52 Dose: 1 tab Ondansetron HCl (Zofran Tab) 4 mg PO Q6 PRN PRN Reason: Nausea/Vomiting Oxycodone/Acetaminophen (Percocet 5/325 Mg Tab) 1 tab PO Q4 PRN PRN Reason: Pain, moderate (4-7) Stop: 09/20/17 08:55 Last Admin: 09/19/17 08:50 Dose: 1 tab Petrolatum (Boudreauxs) 1 appl TP DAILY [facility] Last Admin: 09/18/17 09:12 Dose: 1 appl Polyethylene Glycol (Miralax) 17 gm PO DAILY PRN PRN Reason: Constipation Prednisone (Prednisone Tab) 7.5 mg PO DAILY [facility] Last Admin: 09/19/17 08:54 Dose: 7.5 mg Sennosides (Senokot Tab) 8.6 mg PO HS PRN PRN Reason: Constipation Vitamin A (Vitamin A&D) 1 applic TP Q8 PRN PRN Reason: Dry skin - Labs Labs: 09/19/17 05:00 09/19/17 05:00 PT 11.6 Seconds (9.8-13.1) 09/17/17 00:03 INR 1.0 (0.9-1.2) 09/17/17 00:03 APTT 33.8 Seconds (25.6-37.1) 09/17/17 00:03 - Constitutional Appears: Well, Non-toxic, No Acute Distress - Head Exam Head Exam: ATRAUMATIC, NORMOCEPHALIC - Eye Exam Eye Exam: EOMI, Normal appearance, PERRL Pupil Exam: NORMAL ACCOMODATION, PERRL - ENT Exam ENT Exam: Mucous Membranes Moist, Normal Exam - Neck Exam Neck Exam: Full ROM, Normal Inspection Additional comments: supple, non-tender, no JVD - Respiratory Exam Respiratory Exam: Clear to Ausculation Bilateral, NORMAL BREATHING PATTERN Additional comments: no respiratory distress, no stridor, no wheezing, no rales - Cardiovascular Exam Cardiovascular Exam: REGULAR RHYTHM, +S1, +S2 Additional comments: no murmur, no gallop - GI/Abdominal Exam GI & Abdominal Exam: Soft, Normal Bowel Sounds Additional comments: bandage intact covering right lower abdomen surgical incision sites with good- healing noted. no surrounding erythema, no tenderness elicited upon palpation. - Rectal Exam Rectal Exam: Deferred - Extremities Exam Extremities Exam: Normal Capillary Refill Additional comments: Mild tenderness elicited on palpation of L hip at surgical incision site. Bandage of gauze and tegaderm with JESSIKA compression bandage remains clean, dryand intact to proximal LLE extending from hip to proximal knee. Pt able to flex and extend L knee and wiggle toes without difficulty. - Back Exam Back Exam: NORMAL INSPECTION - Neurological Exam Neurological Exam: Alert, Awake, Oriented x3 - Psychiatric Exam Psychiatric exam: Normal Affect, Normal Mood - Skin Skin Exam: Normal Color Additional comments: Surgical incision sites to L lateral hip with bandage remaining clean, dry and intact. No chano-incision erythema or edema noted. Assessment and Plan (1) Dislocation of hip joint prosthesis Assessment & Plan: -1 day s/p L revisional THR with Dr Goodson -surgical dressing left clean, dry and intact to L hip and thigh -continue pain management with Tylenol and Percocet -per ID, pt on Vancomycin 1g IV q12 -pt to discuss with family if she will go back to [facility] vs. seek alternate [facility] with help of delinquency prevention social worker - Status: Acute (2) Anemia, blood loss Assessment & Plan: -pt transfused one unit 09/17 and two units intra-op on 09/18 -today Hgb at 10.3 -will monitor H/H, add'l unit on hold if needed -continue ferrous sulfate supplements Status: Acute (3) DVT prophylaxis Assessment & Plan: -continue Lovenox and SCDs Status: Acute (4) Rheumatoid arthritis Assessment & Plan: -Prednisone resumed today -Pt to resume home RA meds [Enbrel, Methotrexate, Sulfasalazine] upon discharge Status: Chronic (5) Constipation Assessment & Plan: -continue Dulcolax, Colace, Miralax, Senokot, & Milk of Magnesia Status: Chronic (6) Gait difficulty Assessment & Plan: -pt seen and evaluated by physical therapy -pt had difficulty ambulating due to 10% max weight bearing status per Dr. Goodson -pt will continue rehabilitation in facility -[facility], insurance approval pending Status: Acute
--- NOTE | 2017-09-19 10:40 | CP.PCM.CON ---
History of Present Illness - History of Present Illness History of Present Illness: THE PATIENT IS A 57 YEAR OLD FEMALE WITH A HISTORY OF RHEUMATOID ARTHRITIS WHO UNDERWENT A LEFT HIP REPLACEMENT ON 09/01/17 AND HAD RECENT LEFT HIP PAIN AND DIFFICULTY WEIGHT BEARING AND SHE WAS EVALUATED AND FOUND TO HAVE A DISLOCATION OF THE LEFT HIP PROSTHESIS AND UNDERWENT A REVISION YESTERDAY. SHE ALSO HAD PRIOR RIGHT AND LEFT KNEE REPLACEMENTS FOR RHEUMATOID ARTHRITIS. CARDIOLOGY WAS ASKED TO FOLLOW HER ON THIS ADMISSION. SHE DENIES ANY HISTORY OF CHEST PAIN , CAD, HYPERTENSION OR HYPERLIPIDEMIA. Past Patient History - Past Medical History & Family History Past Medical History?: Yes - Past Social History Smoking Status: Current Some Days Smoker - CARDIAC Hx Cardiac Disorders: No - PULMONARY Hx Respiratory Disorders: No - NEUROLOGICAL Hx Neurological Disorder: No - HEENT Hx HEENT Problems: No - RENAL Hx Chronic Kidney Disease: No - ENDOCRINE/METABOLIC Hx Endocrine Disorders: No - HEMATOLOGICAL/ONCOLOGICAL Hx Anemia: Yes - INTEGUMENTARY Hx Dermatological Problems: No - MUSCULOSKELETAL/RHEUMATOLOGICAL Hx Rheumatoid Arthritis: Yes - GASTROINTESTINAL Hx Gastrointestinal Disorders: No - GENITOURINARY/GYNECOLOGICAL Hx Genitourinary Disorders: No - PSYCHIATRIC Hx Psychophysiologic Disorder: No Hx Substance Use: No - SURGICAL HISTORY Hx Surgeries: Yes Hx Joint Replacement: Yes (right and left knee) - ANESTHESIA Hx Anesthesia: Yes Hx Anesthesia Reactions: No Meds Allergies/Adverse Reactions: Allergies Allergy/AdvReac Type Severity Reaction Status Date / Time No Known Allergies Allergy Verified 09/01/17 07:02 - Medications Medications: Current Medications Acetaminophen (Tylenol 325mg Tab) 650 mg PO Q4 PRN PRN Reason: Fever >100.4 F Bacitracin (Bacitracin Oint) 1 applic TOP DAILY [facility] Last Admin: 09/19/17 08:51 Dose: 1 applic Benzocaine/Menthol (Cepacol Sore Throat) 1 alivia PO Q2 PRN PRN Reason: Sore Throat Bisacodyl (Dulcolax) 10 mg RC DAILY PRN PRN Reason: Constipation Docusate Sodium (Colace) 200 mg PO DAILY [facility] Last Admin: 09/19/17 08:53 Dose: 200 mg Enoxaparin Sodium (Lovenox) 40 mg SC DAILY [facility] PRN Reason: Protocol Last Admin: 09/19/17 08:34 Dose: 40 mg Ferrous Sulfate (Feosol) 325 mg PO BID [facility] Last Admin: 09/19/17 08:54 Dose: 325 mg Glycerin (Glycerin Adult Suppository) 1 sup [place] DAILY PRN PRN Reason: Constipation Lactated Ringer's (Lactated Ringer's) 1,000 mls @ 100 mls/hr IV .Q10H [facility] Vancomycin HCl 1 gm/ Sodium (Chloride) 250 mls @ 166.667 mls/hr IVPB Q12 [facility] PRN Reason: Protocol Last Admin: 09/19/17 08:32 Dose: 166.667 mls/hr Magnesium Hydroxide (Milk Of Magnesia) 30 ml PO Q12 PRN PRN Reason: Constipation Multivitamins/Minerals (Therapeutic-M Tab) 1 tab PO DAILY [facility] Last Admin: 09/19/17 08:52 Dose: 1 tab Ondansetron HCl (Zofran Tab) 4 mg PO Q6 PRN PRN Reason: Nausea/Vomiting Oxycodone/Acetaminophen (Percocet 5/325 Mg Tab) 1 tab PO Q4 PRN PRN Reason: Pain, moderate (4-7) Stop: 09/20/17 08:55 Last Admin: 09/19/17 08:50 Dose: 1 tab Petrolatum (Boudreauxs) 1 appl TP DAILY [facility] Last Admin: 09/18/17 09:12 Dose: 1 appl Polyethylene Glycol (Miralax) 17 gm PO DAILY PRN PRN Reason: Constipation Prednisone (Prednisone Tab) 7.5 mg PO DAILY [facility] Last Admin: 09/19/17 08:54 Dose: 7.5 mg Sennosides (Senokot Tab) 8.6 mg PO HS PRN PRN Reason: Constipation Vitamin A (Vitamin A&D) 1 applic TP Q8 PRN PRN Reason: Dry skin Physical Exam - Respiratory Exam Respiratory Exam: Clear to Auscultation Bilateral - Cardiovascular Exam Cardiovascular Exam: REGULAR RHYTHM, +S1, +S2 - Extremities Exam Additional comments: NO LE EDEMA - Additional Findings Additional findings: EKG NSR Results - Vital Signs Recent Vital Signs: Last Vital Signs Temp 98.3 F 09/19/17 07:23 Pulse 79 09/19/17 07:23 Resp 18 09/19/17 07:23 BP 98/65 L 09/19/17 07:23 Pulse Ox 98 09/19/17 07:23 - Labs Result Diagrams: 09/19/17 05:00 09/19/17 05:00 Labs: Laboratory Results - last 24 hr 09/17/17 09/18/17 09/19/17 02:55 14:45 05:00 WBC 7.8 D RBC 3.57 L Hgb 10.3 L Hct 31.4 L MCV 87.8 MCH 28.8 MCHC 32.8 L RDW 17.4 H Plt Count 280 Sodium Potassium Chloride Carbon Dioxide Anion Gap BUN Creatinine Est GFR ( Amer) Est GFR (Non-Af Amer) Random Glucose Calcium Fluid Type Synovial fluid Synovial WBC 18.0 Synovial RBC 48429.0 H Synovial Neutrophils 39.0 H Synovial Lymphocytes 9.0 H Synov Monos/Macrophage 2 H Synovial Fluid Comment Turbid Blood Type O POSITIVE Antibody Screen Negative Crossmatch See Detail BBK History Checked Patient has bt 09/19/17 05:00 WBC RBC Hgb Hct MCV MCH MCHC RDW Plt Count Sodium 138 Potassium 3.8 Chloride 108 H Carbon Dioxide 26 Anion Gap 8 L BUN 10 Creatinine 0.5 L Est GFR ( Amer) > 60 Est GFR (Non-Af Amer) > 60 Random Glucose 80 Calcium 7.7 L Fluid Type Synovial WBC Synovial RBC Synovial Neutrophils Synovial Lymphocytes Synov Monos/Macrophage Synovial Fluid Comment Blood Type Antibody Screen Crossmatch BBK History Checked Assessment & Plan - Assessment and Plan (Free Text) Assessment: RHEUMATOID ARTHRITIS WITH TOTAL LEFT HIP REPLACEMENT ON 09/01/17 FOLLOWED BY DISLOCATION OF THE PROSTHESIS AND A REVISION ON 09/18/17 Plan: CONTINUE LOVENOX, ANTIBIOTICS AND PAIN MEDICATIONS
--- NOTE | 2017-09-19 12:33 | OP ---
PROCEDURE DATE: PREOPERATIVE DIAGNOSIS: Posttraumatic dislocation of left total hip replacement. POSTOPERATIVE DIAGNOSIS: Posttraumatic dislocation of left total hip replacement. PROCEDURES: 1. Revision of left total hip replacement arthroplasty. 2. Release of iliopsoas tendon. 3. Arthrotomy, synovectomy, and lysis of adhesions. 4. Excision of skin, subcutaneous tissue, and muscle. SURGEON: Tyler Goodson MD PROCESS TRAINER: Zari Ortiz, certified registered nursing registered nurse first assistant. SECOND STRAP FOLDING MACHINE OPERATOR: Matias Stover. TYPE OF ANESTHESIA: Spinal and general anesthesia. ANESTHESIA ADMINISTERED BY: Kj Perea MD COMPLICATIONS: None. DRAINS: None. ESTIMATED BLOOD LOSS: Approximately 150 mL. OPERATIVE INDICATION: Justine Alaniz is a woman who underwent successful left total hip replacement arthroplasty. The patient had a traumatic dislocation according to nurse, Robert Padilla, in the nursing facility. The patient had dislocated the left total hip replacement. The nurse said that the patient's mother had been manipulating the hip at the bedside. As a result, the patient presented to my office the next day for routine followup of the hip, which has dislocated. The patient is admitted as an emergency, medical stabilization was accomplished. Pros, cons, risks, and benefits of revision hip arthroplasty were discussed. Possibility of mechanical failure, infection, thromboembolic disease, secondary or tertiary surgery is discussed. The patient can no longer withstand the discomfort. DESCRIPTION OF PROCEDURE: After having obtained informed consent, after having identified side, site, and procedure and critical pause/time-out, after the satisfactory induction of the anesthetic, again after thoroughly discussing the possibility of mechanical failure, infection, nerve injury, leg length inequality, thromboembolic disease, even is discussed with the patient and her sister. The patient and her sister offered informed consent at this point in time. After having obtained informed consent, after having identified side, site, and procedure and pause/time-out, after the satisfactory induction of the anesthetic, the patient identified as Justine Alaniz in the supine position with all bony prominences well padded. The left lower extremity was placed in the AMIS traction. Under the surgeon's direction, the fluoroscope was positioned, video images were generated, therapeutic decisions were made therefrom. This having been accomplished, the left lower extremity was prepped and free draped in usual fashion for lower extremity surgery. Initial incision was extended 2 fingerbreadths distally and 2 fingerbreadths proximally. The skin incision was carried down through the skin, subcutaneous tissue, and muscle. This having been accomplished, the dissection is carried down through the subcutaneous tissue to the fascia on the tensor fascia femoris. The fascia is divided. Again, the plane inferior to the rectus femoris is developed and the fascia is again identified. The fascia is found to be disrupted, the hip is found to be dislocated, trauma retractor was placed. This having been accomplished, the wound is thoroughly irrigated. At this point in time, hip arthrotomy is accomplished, lysis of adhesions, and partial synovectomy. Fluid is sent for aerobic, anaerobic, AFB, and fungal cultures and stat Gram stain, and number of white cells per high-power field. This having been accomplished, the hip is found to be dislocated. Hemostasis is controlled. There was found to be muscular bleeding and this hemostasis is controlled. The femur is exposed and this having been accomplished, the femoral head was removed with the outer bearing. This having been accomplished, further trialing is now accomplished with a +10.5 head and the appropriate sized outer bearing. The hip was reduced and found to be stable in all planes. At this point in time, the hip is again dislocated and the cup is revised and positioning is revised using the cup positioner and the cup was impacted. The pelvic lift test was accomplished with the So and was found to be stable and the cup is again impacted. At this point in time, the trial was removed for the 10.5 head plus the appropriate outer bearing. The wound was thoroughly irrigated. The hip was reduced and found to be stable in all planes. This having been accomplished, the iliopsoas tendon is released as there was a bit of a contracture. The iliopsoas tendon having been released, the hip construct, the revised femoral head and outer bearing in the dual mobility construct is accomplished. The acetabular component had been revised to a new position, and this having been accomplished, the hip was found to be stable in all planes. The wound was thoroughly irrigated. Iliopsoas tendon was partially released and this having been accomplished, closure in layers with 0 Quill, followed by 0 Quill and Vicryl, and jairo for skin, and compression dressing was accomplished. It should be noted that because of the oozing, the patient had been on Lovenox in the nursing facility. FloSeal and Avitene are employed to control the hemostasis. Compression dressing is applied. Postop x-ray reveals excellent position of the construct. It should be noted that intraoperative x-rays have been accomplished as well using the fluoroscopy. Tyler Goodson MD
--- NOTE | 2017-09-20 07:24 | CP.PCM.PN ---
Subjective - Date & Time of Evaluation Date of Evaluation: 09/20/17 Time of Evaluation: 08:00 - Subjective Subjective: Patient seen and examined bedside. Feeling well. Pain is well controlled. hemodynamically stable, afebrile. No acute issues overnight For discharge to [facility] tomorrow in AM Objective - Vital Signs/Intake and Output Vital Signs (last 24 hours): Temp Pulse Resp BP Pulse Ox 99.3 F 94 H 19 92/61 L 97 09/20/17 00:00 09/20/17 00:00 09/20/17 00:00 09/20/17 00:00 09/20/17 00:00 - Medications Medications: Current Medications Acetaminophen (Tylenol 325mg Tab) 650 mg PO Q4 PRN PRN Reason: Fever >100.4 F Bacitracin (Bacitracin Oint) 1 applic TOP DAILY [facility] Last Admin: 09/19/17 08:51 Dose: 1 applic Benzocaine/Menthol (Cepacol Sore Throat) 1 alivia PO Q2 PRN PRN Reason: Sore Throat Bisacodyl (Dulcolax) 10 mg RC DAILY PRN PRN Reason: Constipation Docusate Sodium (Colace) 200 mg PO DAILY [facility] Last Admin: 09/19/17 08:53 Dose: 200 mg Enoxaparin Sodium (Lovenox) 40 mg SC DAILY [facility] PRN Reason: Protocol Ferrous Sulfate (Feosol) 325 mg PO BID [facility] Last Admin: 09/19/17 18:36 Dose: 325 mg Glycerin (Glycerin Adult Suppository) 1 sup [place] DAILY PRN PRN Reason: Constipation Lactated Ringer's (Lactated Ringer's) 1,000 mls @ 100 mls/hr IV .Q10H [facility] Vancomycin HCl 1 gm/ Sodium (Chloride) 250 mls @ 166.667 mls/hr IVPB Q12 [facility] PRN Reason: Protocol Last Admin: 09/19/17 21:25 Dose: 166.667 mls/hr Magnesium Hydroxide (Milk Of Magnesia) 30 ml PO Q12 PRN PRN Reason: Constipation Multivitamins/Minerals (Therapeutic-M Tab) 1 tab PO DAILY [facility] Last Admin: 09/19/17 08:52 Dose: 1 tab Ondansetron HCl (Zofran Tab) 4 mg PO Q6 PRN PRN Reason: Nausea/Vomiting Oxycodone/Acetaminophen (Percocet 5/325 Mg Tab) 1 tab PO Q4 PRN PRN Reason: Pain, moderate (4-7) Stop: 09/20/17 08:55 Last Admin: 09/19/17 08:50 Dose: 1 tab Petrolatum (Boudreauxs) 1 appl TP DAILY [facility] Last Admin: 09/19/17 09:11 Dose: 1 appl Polyethylene Glycol (Miralax) 17 gm PO DAILY PRN PRN Reason: Constipation Prednisone (Prednisone Tab) 7.5 mg PO DAILY [facility] Last Admin: 09/19/17 08:54 Dose: 7.5 mg Sennosides (Senokot Tab) 8.6 mg PO HS PRN PRN Reason: Constipation Vitamin A (Vitamin A&D) 1 applic TP Q8 PRN PRN Reason: Dry skin - Labs Labs: 09/19/17 05:00 09/19/17 05:00 PT 11.6 Seconds (9.8-13.1) 09/17/17 00:03 INR 1.0 (0.9-1.2) 09/17/17 00:03 APTT 33.8 Seconds (25.6-37.1) 09/17/17 00:03 - Constitutional Appears: Non-toxic, No Acute Distress - Head Exam Head Exam: ATRAUMATIC, NORMAL INSPECTION, NORMOCEPHALIC - Eye Exam Eye Exam: EOMI, Normal appearance, PERRL Pupil Exam: NORMAL ACCOMODATION - ENT Exam ENT Exam: Mucous Membranes Moist, Normal Exam - Neck Exam Neck Exam: Full ROM, Normal Inspection - Respiratory Exam Respiratory Exam: Clear to Ausculation Bilateral, NORMAL BREATHING PATTERN. absent: Rales, Rhonchi, Wheezes - Cardiovascular Exam Cardiovascular Exam: REGULAR RHYTHM, RRR, +S1, +S2. absent: JVD - GI/Abdominal Exam GI & Abdominal Exam: Soft, Normal Bowel Sounds. absent: Distended, Guarding, Tenderness, Rebound - Rectal Exam Rectal Exam: Deferred - Extremities Exam Extremities Exam: Full ROM, Normal Capillary Refill, Normal Inspection. absent : Calf Tenderness, Pedal Edema Additional comments: left hip surgical incision with acquacell dressing in place , intact - Back Exam Back Exam: NORMAL INSPECTION - Neurological Exam Neurological Exam: Alert, Awake, CN II-XII Intact, Oriented x3 - Psychiatric Exam Psychiatric exam: Normal Affect, Normal Mood - Skin Skin Exam: Dry, Intact, Normal Color, Warm Assessment and Plan - Assessment and Plan (Free Text) Assessment: 57 year old female with history of rheumatoid arthritis with prior right and left knee replacements, recent left THR 09/[address] Goodson sent to ER from [facility] with sudden onset of pain to the left hip , limited weight bearing and range of motion of her left hip due to pain. CT of the hip showed dislocation of left hip prosthesis . Ortho consulted and patient admitted to hospital. She underwent revision of left THR 09/18 and waiting to be transferred to [facility] for physical therapy 1. Dislocation of left hip joint prosthesis POD # 2 s/p L revisional THR with Dr Goodson and doing well surgical dressing left clean, dry and intact to L hip and thigh continue pain management with Tylenol and Percocet per ID, pt on Vancomycin 1g IV q12 . will discuss with Id about duration of Iv antibiotics DVt prophylaxis with lovenox started today as per ortho recommendations Pt eval appreciated patient to be discharged to [facility] in Am 2. Anemia, blood loss pt transfused one unit 09/17 and two units intra-op on 09/18 today Hgb at 10.3 will monitor H/H, add'l unit on hold if needed continue ferrous sulfate supplements 3. Rheumatoid arthritis Prednisone resumed today Pt to resume home RA meds [Enbrel, Methotrexate, Sulfasalazine] upon discharge 4. Constipation continue Dulcolax, Colace, Miralax, Senokot, & Milk of Magnesia 5. Gait difficulty pt seen and evaluated by physical therapy pt had difficulty ambulating due to 10% max weight bearing status per Dr. Goodson pt will continue rehabilitation in facility 6. DVT prophylaxis continue Lovenox and SCD
[2017-09-20 07:35] LABS: HEMATOCRIT 31.7 % (34.0-47.0); MEAN CELL VOLUME 88.3 fl (81.0-99.0); MEAN CORPUSCULAR HEMOGLOBIN 28.8 pg (27.0-31.0); MEAN CORPUSCULAR HGB CONC 32.6 g/dL (33.0-37.0); RED CELL DISTRIBUTION WIDTH 17.5 % (11.5-14.5); WHITE BLOOD COUNT 8.5 K/uL (4.8-10.8)
[2017-09-20 07:36] LABS: BLOOD UREA NITROGEN 6 mg/dl (7-17); CALCIUM 8.3 mg/dL (8.4-10.2); CARBON DIOXIDE 26 mmol/L (22-30); CHLORIDE 107 mmol/L (98-107); GFR AFRICAN-AMERICAN > 60; GLUCOSE,RANDOM 87 mg/dL (65-105); POTASSIUM 3.3 MMOL/L (3.6-5.0); SODIUM 139 mmol/l (132-148)
[2017-09-20] MEDS: Multivitamin With Minerals Tab PO SCH (09:48)
[2017-09-20] MEDS: Bacitracin OINT 15GM TOP SCH (09:49)
--- NOTE | 2017-09-20 10:15 | CP.PCM.PN ---
Subjective - Date & Time of Evaluation Date of Evaluation: 09/20/17 Time of Evaluation: 10:05 - Subjective Subjective: S- pt comfortable with minimal post op discomfort Objective - Vital Signs/Intake and Output Vital Signs (last 24 hours): Temp Pulse Resp BP Pulse Ox 98.1 F 81 20 93/60 L 100 09/20/17 08:47 09/20/17 08:47 09/20/17 08:47 09/20/17 08:47 09/20/17 08:47 - Medications Medications: Current Medications Acetaminophen (Tylenol 325mg Tab) 650 mg PO Q4 PRN PRN Reason: Fever >100.4 F Bacitracin (Bacitracin Oint) 1 applic TOP DAILY [facility] Last Admin: 09/20/17 09:49 Dose: 1 applic Benzocaine/Menthol (Cepacol Sore Throat) 1 alivia PO Q2 PRN PRN Reason: Sore Throat Bisacodyl (Dulcolax) 10 mg RC DAILY PRN PRN Reason: Constipation Docusate Sodium (Colace) 200 mg PO DAILY [facility] Last Admin: 09/20/17 09:50 Dose: 200 mg Enoxaparin Sodium (Lovenox) 40 mg SC DAILY [facility] PRN Reason: Protocol Ferrous Sulfate (Feosol) 325 mg PO BID [facility] Last Admin: 09/20/17 09:49 Dose: 325 mg Glycerin (Glycerin Adult Suppository) 1 sup [place] DAILY PRN PRN Reason: Constipation Lactated Ringer's (Lactated Ringer's) 1,000 mls @ 100 mls/hr IV .Q10H [facility] Last Admin: 09/20/17 08:29 Dose: Not Given Vancomycin HCl 1 gm/ Sodium (Chloride) 250 mls @ 166.667 mls/hr IVPB Q12 [facility] PRN Reason: Protocol Last Admin: 09/20/17 09:48 Dose: 166.667 mls/hr Magnesium Hydroxide (Milk Of Magnesia) 30 ml PO Q12 PRN PRN Reason: Constipation Multivitamins/Minerals (Therapeutic-M Tab) 1 tab PO DAILY [facility] Last Admin: 09/20/17 09:48 Dose: 1 tab Ondansetron HCl (Zofran Tab) 4 mg PO Q6 PRN PRN Reason: Nausea/Vomiting Petrolatum (Boudreauxs) 1 appl TP DAILY [facility] Last Admin: 09/19/17 09:11 Dose: 1 appl Polyethylene Glycol (Miralax) 17 gm PO DAILY PRN PRN Reason: Constipation Prednisone (Prednisone Tab) 7.5 mg PO DAILY [facility] Last Admin: 09/20/17 09:49 Dose: 7.5 mg Sennosides (Senokot Tab) 8.6 mg PO HS PRN PRN Reason: Constipation Vitamin A (Vitamin A&D) 1 applic TP Q8 PRN PRN Reason: Dry skin - Labs Labs: 09/20/17 05:30 09/20/17 05:30 PT 11.6 Seconds (9.8-13.1) 09/17/17 00:03 INR 1.0 (0.9-1.2) 09/17/17 00:03 APTT 33.8 Seconds (25.6-37.1) 09/17/17 00:03 - Additional Findings Additional findings: Objective systemic- wnl Musculoskeletal stance/gait- defrred L hip wound beign N/V inyact orthopedsicallys stable Assessment and Plan - Assessment and Plan (Free Text) Assessment: A- s/p Revisison THR P orthopedically stable for rehab transfer in Am
[2017-09-20] MEDS ORDERED: Oxycodone/Acetaminophen 5/325 mg Tab PO PRN (11:03)
[2017-09-20] MEDS: Oxycodone/Acetaminophen 5/325 mg Tab PO PRN (11:30)
[2017-09-20] MEDS: Enoxaparin 40 mg Syringe SC SCH (11:31)
[2017-09-20] MEDS: Zinc Oxide 5 APPL/28 GM OINT TP SCH (11:31)
[2017-09-20] MEDS ORDERED: Potassium Chloride 20 mEq/15 ml LIQ UD PO ONE (12:29)
--- NOTE | 2017-09-20 14:49 | CP.PCM.PN ---
Subjective - Date & Time of Evaluation Date of Evaluation: 09/20/17 Time of Evaluation: 13:00 - Subjective Subjective: NO CHEST PAIN OR SOB Objective - Vital Signs/Intake and Output Vital Signs (last 24 hours): Temp Pulse Resp BP Pulse Ox 98.1 F 81 20 93/60 L 100 09/20/17 08:47 09/20/17 08:47 09/20/17 08:47 09/20/17 08:47 09/20/17 08:47 - Medications Medications: Current Medications Acetaminophen (Tylenol 325mg Tab) 650 mg PO Q4 PRN PRN Reason: Fever >100.4 F Bacitracin (Bacitracin Oint) 1 applic TOP DAILY [facility] Last Admin: 09/20/17 09:49 Dose: 1 applic Benzocaine/Menthol (Cepacol Sore Throat) 1 alivia PO Q2 PRN PRN Reason: Sore Throat Bisacodyl (Dulcolax) 10 mg RC DAILY PRN PRN Reason: Constipation Docusate Sodium (Colace) 200 mg PO DAILY [facility] Last Admin: 09/20/17 09:50 Dose: 200 mg Enoxaparin Sodium (Lovenox) 40 mg SC DAILY [facility] PRN Reason: Protocol Last Admin: 09/20/17 11:31 Dose: 40 mg Ferrous Sulfate (Feosol) 325 mg PO BID [facility] Last Admin: 09/20/17 09:49 Dose: 325 mg Glycerin (Glycerin Adult Suppository) 1 sup [place] DAILY PRN PRN Reason: Constipation Lactated Ringer's (Lactated Ringer's) 1,000 mls @ 100 mls/hr IV .Q10H [facility] Last Admin: 09/20/17 08:29 Dose: Not Given Vancomycin HCl 1 gm/ Sodium (Chloride) 250 mls @ 166.667 mls/hr IVPB Q12 [facility] PRN Reason: Protocol Last Admin: 09/20/17 09:48 Dose: 166.667 mls/hr Magnesium Hydroxide (Milk Of Magnesia) 30 ml PO Q12 PRN PRN Reason: Constipation Multivitamins/Minerals (Therapeutic-M Tab) 1 tab PO DAILY [facility] Last Admin: 09/20/17 09:48 Dose: 1 tab Ondansetron HCl (Zofran Tab) 4 mg PO Q6 PRN PRN Reason: Nausea/Vomiting Oxycodone/Acetaminophen (Percocet 5/325 Mg Tab) 1 tab PO Q4 PRN PRN Reason: Pain, moderate (4-7) Stop: 09/23/17 11:04 Last Admin: 09/20/17 11:30 Dose: 1 tab Oxycodone/Acetaminophen (Percocet 5/325 Mg Tab) 2 tab PO Q6 PRN PRN Reason: Pain, severe (8-10) Stop: 09/23/17 11:04 Petrolatum (Boudreauxs) 1 appl TP DAILY [facility] Last Admin: 09/20/17 11:31 Dose: 1 appl Polyethylene Glycol (Miralax) 17 gm PO DAILY PRN PRN Reason: Constipation Prednisone (Prednisone Tab) 7.5 mg PO DAILY [facility] Last Admin: 09/20/17 09:49 Dose: 7.5 mg Sennosides (Senokot Tab) 8.6 mg PO HS PRN PRN Reason: Constipation Vitamin A (Vitamin A&D) 1 applic TP Q8 PRN PRN Reason: Dry skin - Labs Labs: 09/20/17 05:30 09/20/17 05:30 PT 11.6 Seconds (9.8-13.1) 09/17/17 00:03 INR 1.0 (0.9-1.2) 09/17/17 00:03 APTT 33.8 Seconds (25.6-37.1) 09/17/17 00:03 - Respiratory Exam Respiratory Exam: Clear to Ausculation Bilateral - Cardiovascular Exam Cardiovascular Exam: REGULAR RHYTHM, +S1, +S2 - Additional Findings Additional findings: K+ 3.3 Assessment and Plan - Assessment and Plan (Free Text) Assessment: S/P REVISION OF LEFT TOTAL HIP REPLACEMENT FOLLOWING DISLOCATION RHEUMATOID ARTHRITIS HYPOKALEMIA Plan: CONTINUE ANTIBIOTICS, LOVENOX AND PAIN MEDICATIONS KCL GIVEN REPEAT BMP IN AM
[2017-09-21 06:52] LABS: HEMATOCRIT 31.9 % (34.0-47.0); MEAN CELL VOLUME 87.7 fl (81.0-99.0); MEAN CORPUSCULAR HEMOGLOBIN 28.7 pg (27.0-31.0); MEAN CORPUSCULAR HGB CONC 32.7 g/dL (33.0-37.0); RED CELL DISTRIBUTION WIDTH 17.2 % (11.5-14.5); WHITE BLOOD COUNT 6.1 K/uL (4.8-10.8)
[2017-09-21 07:06] LABS: BLOOD UREA NITROGEN 6 mg/dl (7-17); CALCIUM 8.6 mg/dL (8.4-10.2); CARBON DIOXIDE 27 mmol/L (22-30); CHLORIDE 107 mmol/L (98-107); GFR AFRICAN-AMERICAN > 60; GLUCOSE,RANDOM 91 mg/dL (65-105); POTASSIUM 3.6 MMOL/L (3.6-5.0); SODIUM 140 mmol/l (132-148)
--- NOTE | 2017-09-21 07:47 | CP.PCM.DIS ---
Provider - Provider Date of Admission: 09/17/17 00:36 Attending physician: Darrell Anderson DO Primary care physician: Dr. Goodson Consults: ortho consult ID consult cardio consult Pt Time Spent in preparation of Discharge (in minutes): 20 Hospital Course - Lab Results Lab Results: Micro Results 09/18/17 22:38 Hip - Left Gram Stain - Preliminary 09/18/17 22:38 Hip - Left Anaerobic Culture - Final NO ANAEROBES ISOLATED. 09/18/17 22:38 Hip - Left Fungal Culture - Preliminary 09/18/17 22:38 Hip - Left Wound Culture - Preliminary No growth. 09/18/17 22:10 Other: Please Indicate Gram Stain - Final 09/18/17 22:10 Other: Please Indicate Anaerobic Culture - Final NO ANAEROBES ISOLATED. 09/18/17 22:10 Other: Please Indicate Body Fluid Culture - Preliminary NO GROWTH AFTER 2 DAYS 09/18/17 22:10 Other: Please Indicate Wound Culture - Preliminary No growth. 09/18/17 14:55 Hip - Left Gram Stain - Final 09/18/17 14:55 Hip - Left Wound Culture - Preliminary No growth. 09/18/17 14:55 Hip - Left Gram Stain - Preliminary 09/18/17 14:55 Hip - Left Wound Culture - Preliminary No growth. 09/18/17 14:55 Hip - Left Gram Stain - Preliminary 09/18/17 14:55 Hip - Left Wound Culture - Preliminary No growth. 09/18/17 14:55 Hip - Left Gram Stain - Preliminary 09/18/17 14:55 Hip - Left Wound Culture - Preliminary No growth. 09/18/17 14:55 Hip - Left Gram Stain - Preliminary 09/18/17 14:55 Hip - Left Wound Culture - Preliminary No growth. 09/18/17 14:55 Hip - Left Gram Stain - Preliminary 09/18/17 14:55 Hip - Left Wound Culture - Preliminary No growth. 09/18/17 22:10 Body Fluid - Other-Put In Comments Fungal Culture - Preliminary Most Recent Lab Values WBC 6.1 K/uL (4.8-10.8) 09/21/17 05:30 RBC 3.63 Mil/uL (3.80-5.20) L 09/21/17 05:30 Hgb 10.4 g/dL (12.0-16.0) L 09/21/17 05:30 Hct 31.9 % (34.0-47.0) L 09/21/17 05:30 MCV 87.7 fl (81.0-99.0) 09/21/17 05:30 MCH 28.7 pg (27.0-31.0) 09/21/17 05:30 MCHC 32.7 g/dL (33.0-37.0) L 09/21/17 05:30 RDW 17.2 % (11.5-14.5) H 09/21/17 05:30 Plt Count 258 K/uL (130-400) 09/21/17 05:30 MPV 6.8 fl (7.2-11.7) L 09/17/17 00:03 Neut % (Auto) 71.8 % (50.0-75.0) 09/17/17 00:03 Lymph % (Auto) 17.9 % (20.0-40.0) L 09/17/17 00:03 Phelps % (Auto) 8.1 % (0.0-10.0) 09/17/17 00:03 Eos % (Auto) 1.2 % (0.0-4.0) 09/17/17 00:03 Baso % (Auto) 1.0 % (0.0-2.0) 09/17/17 00:03 Neut # 4.1 K/uL (1.8-7.0) 09/17/17 00:03 Lymph # 1.0 K/uL (1.0-4.3) 09/17/17 00:03 Phelps # 0.5 K/uL (0.0-0.8) 09/17/17 00:03 Eos # 0.1 K/uL (0.0-0.7) 09/17/17 00:03 Baso # 0.1 K/uL (0.0-0.2) 09/17/17 00:03 PT 11.6 Seconds (9.8-13.1) 09/17/17 00:03 INR 1.0 (0.9-1.2) 09/17/17 00:03 APTT 33.8 Seconds (25.6-37.1) 09/17/17 00:03 Sodium 140 mmol/l (132-148) 09/21/17 05:30 Potassium 3.6 MMOL/L (3.6-5.0) 09/21/17 05:30 Chloride 107 mmol/L (98-107) 09/21/17 05:30 Carbon Dioxide 27 mmol/L (22-30) 09/21/17 05:30 Anion Gap 10 (10-20) 09/21/17 05:30 BUN 6 mg/dl (7-17) L 09/21/17 05:30 Creatinine 0.4 mg/dL (0.7-1.2) L 09/21/17 05:30 Est GFR ( Amer) > 60 09/21/17 05:30 Est GFR (Non-Af Amer) > 60 09/21/17 05:30 Random Glucose 91 mg/dL (65-105) 09/21/17 05:30 Calcium 8.6 mg/dL (8.4-10.2) 09/21/17 05:30 Procalcitonin 0.55 NG/ML (0.19-0.49) H 09/19/17 05:00 Urine Color Yellow (YELLOW) 09/17/17 00:03 Urine Clarity Cloudy (Clear) 09/17/17 00:03 Urine pH 7.0 (5.0-8.0) 09/17/17 00:03 Ur Specific [place] 1.016 (1.003-1.030) 09/17/17 00:03 Urine Protein Negative mg/dL (NEGATIVE) 09/17/17 00:03 Urine Glucose (UA) Neg mg/dL (Normal) 09/17/17 00:03 Urine Ketones Negative mg/dL (NEGATIVE) 09/17/17 00:03 Urine Blood Negative (NEGATIVE) 09/17/17 00:03 Urine Nitrate Negative (NEGATIVE) 09/17/17 00:03 Urine Bilirubin Negative (NEGATIVE) 09/17/17 00:03 Urine Urobilinogen 4.0 mg/dL (0.2-1.0) H 09/17/17 00:03 Ur Leukocyte Esterase Neg Betty/uL (Negative) 09/17/17 00:03 Urine RBC (Auto) 13 /hpf (0-3) H 09/17/17 00:03 Urine Microscopic WBC 7 /hpf (0-5) H 09/17/17 00:03 Ur Squamous Epith Cells 1 /hpf (0-5) 09/17/17 00:03 Urine Bacteria Rare (<OCC) 09/17/17 00:03 Fluid Type Synovial fluid 09/18/17 14:45 Synovial WBC 18.0 /mm3 (0.0-150.0) 09/18/17 14:45 Synovial RBC 62379.0 /mm3 (0.0-0.0) H 09/18/17 14:45 Synovial Neutrophils 39.0 % (0-0) H 09/18/17 14:45 Synovial Lymphocytes 9.0 % (0-0) H 09/18/17 14:45 Synov Monos/Macrophage 2 % (0-0) H 09/18/17 14:45 Synovial Fluid Comment Turbid 09/18/17 14:45 Blood Type O POSITIVE 09/17/17 02:55 Antibody Screen Negative 09/17/17 02:55 Crossmatch See Detail 09/17/17 02:55 BBK History Checked Patient has bt 09/17/17 02:55 - Hospital Course Hospital Course: 57 year old female with history of rheumatoid arthritis with prior right and left knee replacements, recent left THR 09/[address] Goodson sent to ER from [facility] with sudden onset of pain to the left hip , limited weight bearing and range of motion of her left hip due to pain. CT of the hip showed dislocation of left hip prosthesis . Ortho consulted and patient admitted to hospital. She underwent revision of left THR 09/18 and post op doing well. To be discharged to [facility] today 1. Dislocation of left hip joint prosthesis POD # 3 s/p L revisional THR with Dr Goodson and doing well surgical dressing left clean, dry and intact to L hip and thigh continue pain management with Tylenol and Percocet per ID, pt was placed on Vancomycin 1g IV q12 .Cultures with no growth Will d/c antibiotics DVT prophylaxis with lovenox as per ortho recommendations Pt eval appreciated patient to be discharged to [facility] today 2. Anemia, blood loss pt transfused one unit 09/17 and two units intra-op on 09/18 today Hgb at 10.3 started ferrous sulfate supplements 3. Rheumatoid arthritis Prednisone resumed today Pt to resume home RA meds [Enbrel, Methotrexate, Sulfasalazine] upon discharge 4. Constipation continue Dulcolax, Colace, Miralax, Senokot, & Milk of Magnesia 5. Gait difficulty pt seen and evaluated by physical therapy pt had difficulty ambulating due to 10% max weight bearing status per Dr. Goodson pt will continue rehabilitation in facility 6. DVT prophylaxis continue Lovenox and SCD Discharge Exam - Head Exam Head Exam: ATRAUMATIC, NORMAL INSPECTION, NORMOCEPHALIC - Eye Exam Eye Exam: EOMI, Normal appearance, PERRL Pupil Exam: NORMAL ACCOMODATION - ENT Exam ENT Exam: Mucous Membranes Moist, Normal Exam - Neck Exam Neck exam: Full Rom, Normal Inspection - Respiratory Exam Respiratory Exam: Clear to PA & Lateral, NORMAL BREATHING PATTERN. absent: Rales, Rhonchi, Wheezes - Cardiovascular Exam Cardiovascular Exam: REGULAR RHYTHM, RRR, +S1, +S2. absent: JVD - GI/Abdominal Exam GI & Abdominal Exam: Normal Bowel Sounds, Soft. absent: Distended, Guarding, Rebound, Tenderness - Rectal Exam Rectal Exam: Deferred - Extremities Exam Extremities exam: normal capillary refill, normal inspection, pedal pulses present Additional comments: left hip surgical incision with acquacell dressing in place - Back Exam Back exam: NORMAL INSPECTION - Neurological Exam Neurological exam: Alert, CN II-XII Intact, Oriented x3, Reflexes Normal - Psychiatric Exam Psychiatric exam: Normal Affect, Normal Mood - Skin Skin Exam: Dry, Normal Color, Warm Discharge Plan - Follow Up Plan Condition: STABLE Disposition: TRANSF TO SNF Patient education suggested?: Yes Referrals: Tyler Goodson III, MD [Staff Provider] -
[2017-09-21 08:22] VITALS: BP 104/73; PULSE 84; RESP 20; TEMP 98.2; O2SAT 96
[2017-09-21] MEDS: Multivitamin With Minerals Tab PO SCH (08:33)
[2017-09-21] MEDS: Bacitracin OINT 15GM TOP SCH (08:34)
[2017-09-21] MEDS: Enoxaparin 40 mg Syringe SC SCH (08:35)
[2017-09-21] MEDS: Zinc Oxide 5 APPL/28 GM OINT TP SCH (08:38)
[2017-09-21] MEDS: Oxycodone/Acetaminophen 5/325 mg Tab PO PRN (10:04)
== END 2017-09-21 11:30 | DRG 468 ==
LOC: H.ER 22:43 → H.ERHOLD 09-17 00:36 → H.MEDSURG1 09-17 03:10
PROVIDERS: ADMIT Internal Medicine; ATTEND Internal Medicine
PROC: 30233N1 Transfusion of Nonautologous Red Blood Cells into Peripheral Vein, Percutaneous Approach (ICD-10-PCS; 2017-09-17)
PROC: 3E0T3BZ Introduction of Anesthetic Agent into Peripheral Nerves and Plexi, Percutaneous Approach (ICD-10-PCS; 2017-09-18)
PROC: 3E0T33Z Introduction of Anti-inflammatory into Peripheral Nerves and Plexi, Percutaneous Approach (ICD-10-PCS; 2017-09-18)
PROC: 0SRB0JZ Replacement of Left Hip Joint with Synthetic Substitute, Open Approach (ICD-10-PCS; principal; 2017-09-18 09:15)
PROC: 0SPB0JZ Removal of Synthetic Substitute from Left Hip Joint, Open Approach (ICD-10-PCS; 2017-09-18 09:15)
DX: T84.021A Dislocation of internal left hip prosthesis, initial encounter (principal); E87.6 Hypokalemia; M06.9 Rheumatoid arthritis, unspecified; D50.0 Iron deficiency anemia secondary to blood loss (chronic); K59.00 Constipation, unspecified; F17.210 Nicotine dependence, cigarettes, uncomplicated; R26.2 Difficulty in walking, not elsewhere classified; Z96.642 Presence of left artificial hip joint; Z96.653 Presence of artificial knee joint, bilateral; Y79.2 Prosthetic and other implants, materials and accessory orthopedic devices associated with adverse incidents